=== PATIENT | female | born 1945 | race African-American/Black ===

== ENCOUNTER 2019-12-18 11:06 | Emergency (ER) | payer MEDICARE, SELFPAY ==
--- NOTE | ~2019-12-18 | XR_ITS ---
EXAMINATION: XR chest 1V portable DATE: 12/18/2019 12:48 INDICATION: PICC line removed TECHNIQUE: frontal view of the chest was obtained. COMPARISON: Chest radiograph dated 12/18/2019 at 11:54 AM FINDINGS: The previously noted right internal jugular central venous catheter has been removed. Mild elevation the right hemidiaphragm. Small bilateral pleural effusions. Opacities at the bilateral lung bases mos t prominent at the medial aspect of the left lower lung zone most likely associated compressive atele ctasis although differential includes pneumonia. No pulmonary edema or pneumothorax. The cardiomedias tinal silhouette is normal. IMPRESSION: 1. Small bilateral pleural effusions with mild bibasilar atelectasis versus less likely pneumonia. Reviewed, dictated and finalized at location A. IMPRESSION: 1. Small bilateral pleural effusions with mild bibasilar atelectasis versus les s likely pneumonia.
--- NOTE | ~2019-12-18 | XR_ITS ---
EXAMINATION: XR chest 1V portable DATE: 12/18/2019 11:56 INDICATION: Line displacement TECHNIQUE: frontal view of the chest was obtained. COMPARISON: None FINDINGS: Left internal jugular central venous catheter which courses inferiorly along the left side of the med iastinum with distal tip projecting over the left side of the heart lateral to the margin of the desc ending thoracic aorta. Very small bilateral pleural effusions with blunting at the costophrenic cardiophrenic angles. Opacit y at the medial left lower lung zone most likely compressive atelectasis although differential includ es pneumonia. No other airspace opacities, pulmonary edema or pneumothorax. Cardiomediastinal silhoue tte is within normal limits for AP technique. Surgical clips project over the epigastric region. IMPRESSION: 1. Abnormal course of a left internal jugular central venous catheter which could be either within th e left internal mamillary vein or extending along an aberrant or duplicated left-sided superior vena cava. 2. Very small bilateral pleural effusions with mild bibasilar atelectasis versus less likely pneumoni a.. Reviewed, dictated and finalized at location A. IMPRESSION: 1. Abnormal course of a left internal jugular central venous catheter which cou ld be either within the left internal mamillary vein or extending along an aber rant or duplicated left-sided superior vena cava. 2. Very small bilateral pleural effusions with mild bibasilar atelectasis versu s less likely pneumonia..
[2019-12-18 11:03] VITALS: BP 171/79; PULSE 83; RESP 20; TEMP 36.4; O2SAT 100
[2019-12-18 11:05] VITALS: PULSE 81
--- NOTE | 2019-12-18 11:49 | ED.GENADULT ---
HPI - General Adult General Chief complaint: Unspecified Stated complaint: PICC Line came out Source: patient and EMS Mode of arrival: ambulatory Limitations: no limitations History of Present Illness HPI narrative: Patient is a 74-year-old female who [facility] evaluation of PICC line displacement which was found today patient on arrival to the emergency department is resting comfortably in the room in no distress denying any complaints or pain. Patient is unsure as to why she has the PICC line Related Data Home Medications Medication Instructions Recorded Confirmed TPN Electrolytes 12/18/19 acetaminophen [Mapap 1,000 mg PO Q6H PRN 12/18/19 (acetaminophen)] albuterol sulfate 2.5 mg INHALATION Q4H PRN 12/18/19 alum-mag hydroxide-simeth [Maalox 10 ml PO Q4-5H PRN 12/18/19 Advanced] amlodipine [Norvasc] 10 mg PO DAILY 12/18/19 calcitriol 0.5 mcg PO DAILY 12/18/19 cetirizine [Zyrtec] 5 mg PO DAILY 12/18/19 diphenhydramine HCl [Benadryl] 5 mg PO Q4-5H 12/18/19 ergocalciferol (vitamin D2) 1,250 mcg PO WEEKLY 12/18/19 [Drisdol] esomeprazole magnesium [Nexium] 40 mg PO DAILY 12/18/19 fat emulsion 12/18/19 ferrous sulfate 44 mg PO DAILY 12/18/19 fluticasone propionate 1 spray INTRANASAL PRN PRN 12/18/19 heparin (porcine) 5,000 unit SUBCUT Q8H 12/18/19 heparin lock flush (porcine) 5 unit IV Q8H 12/18/19 lidocaine 1 patch TOPICAL DAILY 12/18/19 thiamine HCl (vitamin B1) 2,500 mg PO DAILY 12/18/19 Allergies Allergy/AdvReac Type Severity Reaction Status Date / Time ceftriaxone Allergy Unknown Verified 12/18/19 11:08 gabapentin Allergy Unknown Verified 12/18/19 11:08 Penicillins Allergy Unknown Verified 12/18/19 11:08 Review of Systems Review of Systems: All systems reviewed & are unremarkable except as noted in HPI and below PMFSH Surgical History Surgical History Status post PICC central line placement Social History Social History Gender identity (if verbalized by the patient): Female Exam Narrative: Exam Narrative: GENERAL: Well-appearing, well-nourished, and in no acute distress. HEAD: Normocephalic, atraumatic. EYES: PERRLA and EOMI. ENT: Nares clear, no rhinorrhea or epistaxis. Mucous membranes moist. CHEST: Clear to auscultation. No respiratory distress. No wheezes rales or rhonchi HEART: Regular rate and rhythm. No murmur heard. Normal peripheral pulses. ABDOMEN: Soft, nontender, nondistended EXTREMITIES: Normal range of motion. No edema. SKIN: Warm, dry, no rash. PICC line dislodged from the left upper chest no erythema drainage or bleeding noted NEURO: No focal deficits. Alert and oriented x3. PSYCH: Normal mood and affect. Course Course Emergency Course: Patient in the room in no distress aware of case findings treatment plan and diagnosis agreeing to being transferred back and will be followed by primary care who will facilitate having the line replaced Consultations Consultation #1: Follow-up with Dr. Cotton who will help facilitate having the line replaced and feels comfortable with the patient returning to the nursing rehab facility Date: 12/18/19 Time: 12:46 Vital Signs Vital signs: Vital Signs Temperature 97.6 F 12/18/19 11:03 Pulse Rate 83 12/18/19 11:03 Respiratory Rate 20 12/18/19 11:03 Blood Pressure 171/79 H 12/18/19 11:03 Pulse Oximetry 100 12/18/19 11:03 Temperature 97.6 F 12/18/19 11:03 Pulse Rate 86 12/18/19 12:38 Respiratory Rate 18 12/18/19 12:38 Blood Pressure 171/79 H 12/18/19 11:03 Pulse Oximetry 100 12/18/19 12:38 Procedures Other Procedure Procedure 1: Other Procedure: Patient's PICC line was dislodged 2 sutures were removed for it was sutured into place Medical Decision Making MDM Narrative Medical decision making narrative: Patient in the room in no distress awar
[2019-12-18 12:22] LABS: Basophils Absolute Auto 0.1 K/mm3 (0.0-0.1); Eosinophils Absolute Auto 0.3 K/mm3 (0-0.3); Eosinophils Percent Auto 3.2 % (0-4.4); Hematocrit 33.4 % (37.0-47.0); Hemoglobin 9.7 g/dL (12.0-15.0); Immature Granulocyte Absolute 0.04 K/mm3 (0.00-0.031); Immature Granulocyte Percent A 0.4 % (0-0.5); Lymphocytes Absolute Auto 2.11 K/mm3 (0.9-3.2); Lymphocytes Percent Auto 20.9 % (18.3-44.2); Mean Corpuscular Hemoglobin 29.7 pg (26-34); Mean Corpuscular Volume 102.1 fl (80-100); Mean Platelet Volume 10.5 fl (7.4-10.4); Monocytes Percent Auto 10.2 % (2.6-8.5); Neutrophils Absolute Auto 6.5 K/mm3 (1.3-6.7); Neutrophils Percent Auto 64.3 % (45.5-73.1); Platelet Count Result 515 k/mm3 (150-375); Red Blood Count 3.27 M/mm3 (4.2-5.4); Red Cell Distribution Width 15.4 % (11.5-14.5); White Blood Count 10.1 K/mm3 (4.5-10.0)
[2019-12-18 12:38] VITALS: PULSE 86; RESP 18; O2SAT 100
[2019-12-18 12:44] LABS: Alanine Aminotransferase 63 U/L (4-35); Albumin Level 3.8 g/dL (3.5-5.1); Aspartate Amino Transferase 133 U/L (14-36); Bilirubin,Total 1.6 mg/dL (0.2-1.3); Blood Urea Nitrogen 52 mg/dL (7-17); Calcium 9.8 mg/dL (8.4-10.2); Carbon Dioxide 16 mmol/L (22-30); Chloride 111 mmol/L (98-107); Estimated CRCL calculation 19 ml/min; Estimated Glomerular Filt Rate 23; Glucose 101 mg/dL (65-105); Potassium 3.8 mmol/L (3.4-5.0); Sodium 141 mmol/L (137-145)
[2019-12-18 13:00] LABS: Alkaline Phosphatase 1200 U/L (38-126)
--- NOTE | 2019-12-18 16:17 | PC.NURSE ---
Patient transferred to [facility] via [facility] at this time.
== END 2019-12-18 16:18 ==
PROVIDERS: Emergency Medicine Emergency Medical Services; Emergency Provider Family Medicine
DX: Z45.2 Encounter for adjustment and management of vascular access device (principal); R91.8 Other nonspecific abnormal finding of lung field
CPT/HCPCS: 36415; 71045; 80053; 85025; 99283

== ENCOUNTER 2020-03-10 20:23 | Emergency (ER) | payer MEDICARE, SELFPAY ==
--- NOTE | ~2020-03-10 | XR_ITS ---
EXAMINATION: XR hip RT 2V w AP pelvis DATE: 03/10/2020 21:08 INDICATION: Right hip pain. TECHNIQUE: An anteroposterior view of the pelvis and 2 views of right hip were obtained. COMPARISON: None. FINDINGS: There is a bipolar right hip hemiarthroplasty in near-anatomic alignment. No periprosthetic lucency to suggest loosening or infection. No fracture. There is mild left hip osteoarthritis. Surgi burt clips overlie the pelvis. There is at least mild lumbar spondylosis. IMPRESSION: 1. Bipolar right hip hemiarthroplasty in near-anatomic alignment. 2. Mild left hip osteoarthritis. Reviewed, dictated and finalized at location A.
[2020-03-10 20:27] VITALS: BP 102/63; PULSE 74; RESP 15; O2SAT 100
--- NOTE | 2020-03-10 20:30 | ED.FALL ---
HPI - Fall General Chief Complaint: Fall Stated Complaint: fall, hip pain History of Present Illness HPI Narrative: Patient is a 74-year-old female who presents ER with left hip pain. Patient reports she is getting up out of bed when her gown got caught on the wheel of a walker of the bed and caused her to fall onto her right side. She injured her right hip. She has been able to bear weight. No numbness or tingling. She did not strike her head or lose consciousness. She was sent by [facility] for further evaluation. Related Data Home Medications Medication Instructions Recorded Confirmed TPN Electrolytes 12/18/19 acetaminophen [Mapap 1,000 mg PO Q6H PRN 12/18/19 (acetaminophen)] albuterol sulfate 2.5 mg INHALATION Q4H PRN 12/18/19 alum-mag hydroxide-simeth [Maalox 10 ml PO Q4-5H PRN 12/18/19 Advanced] amlodipine [Norvasc] 10 mg PO DAILY 12/18/19 calcitriol 0.5 mcg PO DAILY 12/18/19 cetirizine [Zyrtec] 5 mg PO DAILY 12/18/19 diphenhydramine HCl [Benadryl] 5 mg PO Q4-5H 12/18/19 ergocalciferol (vitamin D2) 1,250 mcg PO WEEKLY 12/18/19 [Drisdol] esomeprazole magnesium [Nexium] 40 mg PO DAILY 12/18/19 fat emulsion 12/18/19 ferrous sulfate 44 mg PO DAILY 12/18/19 fluticasone propionate 1 spray INTRANASAL PRN PRN 12/18/19 heparin (porcine) 5,000 unit SUBCUT Q8H 12/18/19 heparin lock flush (porcine) 5 unit IV Q8H 12/18/19 lidocaine 1 patch TOPICAL DAILY 12/18/19 thiamine HCl (vitamin B1) 2,500 mg PO DAILY 12/18/19 Allergies Allergy/AdvReac Type Severity Reaction Status Date / Time ceftriaxone Allergy Unknown Verified 03/10/20 20:41 gabapentin Allergy Unknown Verified 03/10/20 20:41 Penicillins Allergy Unknown Verified 03/10/20 20:41 Review of Systems Review of Systems: No All systems reviewed & are unremarkable except as noted in HPI and below Constitutional: Constitutional: Denies chills, Denies fever(s) and Denies weakness Musculoskeletal: Musculoskeletal: Denies back pain, Reports arthralgias, Denies joint swelling and Denies muscle cramps Neurologic: Denies syncope, Denies focal weakness and Denies numbness PMFSH Past Medical History Medical History (Updated 03/10/20 @ 22:33 by Mike Baker MD) Choledocholithiasis CKD (chronic kidney disease) Diabetes mellitus Gastric ulcer Severe malnutrition Surgical History Surgical History (Updated 03/10/20 @ 20:35 by Mike Baker MD) History of ERCP History of gastrostomy tube placement Status post PICC central line placement Social History Social History Gender identity (if verbalized by the patient): Female Sexual Orientation (if Verbalized by the Patient): Straight or Heterosexual Exam Narrative: Exam Narrative: GENERAL: Well-appearing, thin, and in no acute distress. HEAD: Normocephalic, atraumatic. ENT: Mucous membranes moist. CHEST: Clear to auscultation. No respiratory distress. HEART: Regular rate and rhythm. Normal peripheral pulses. ABDOMEN: Soft, nontender, nondistended, malodorous urine from [place] EXTREMITIES: Normal range of motion of the upper extremities. No shortening of the lower extremities, endorses pain at the right hip but maintains ROM. SKIN: Warm, dry, no rash. NEURO: Alert and oriented x3. Course Course Emergency Course: [place] for pain. X-rays negative. Macrobid for UTI. Patient declined blood draw. Vital Signs Vital signs: Vital Signs Pulse Rate 74 03/10/20 20:27 Respiratory Rate 15 03/10/20 20:27 Blood Pressure 102/63 03/10/20 20:27 Pulse Oximetry 100 03/10/20 20:27 Temperature 98.6 F 03/10/20 20:36 Pulse Rate 77 03/10/20 22:00 Respiratory Rate 19 03/10/20 22:00 Blood Pressure 105/67 03/10/20 22:00 Pulse Oximetry 97 03/10/20 22:00 MDM - Fall Lab Data Labs: Lab Results 03/10/20 Range/Units 20:43 Urine Color Yellow (Yellow) Urine Appearance Turbid H (Verena
[2020-03-10 20:36] VITALS: BP 102/63; PULSE 763; RESP 16; TEMP 37; O2SAT 98
--- NOTE | 2020-03-10 20:56 | PC.NURSE ---
pt to xray via stretcher at this time.
[2020-03-10 20:57] LABS: Add Urine Microscopic? YES; Amorphous Sediment Urine Few; Appearance Urine Turbid (Clear); Bacteria Urine 4+ /hpf; Bilirubin Urine Negative (Negative); Blood Urine Negative (Negative); Color Urine Yellow (Yellow); Glucose Urine UA Negative (Negative); Ketones Urine Negative (Negative); Leukocyte Esterase Ur 3+ LEU/UL (Negative); Mucus Urine Rare /lpf; Nitrate Urine Negative (Negative); Protein Urine 3+ mg/dL (Negative); RBC Urine 21-50 /hpf (0-2); Specific Grav Ur 1.014 (1.001-1.035); Squamous Epithelial Cell Urine Rare /hpf (Few); Urobilinogen Urine Negative mg/dL (<2.0)
--- NOTE | 2020-03-10 21:22 | PC.NURSE ---
Asked lab to come draw pt
--- NOTE | 2020-03-10 21:55 | PC.NURSE ---
Addendum entered by Rocio De La Rosa RN 03/10/20 22:00: dr. payne made aware. Original Note: lab unable to obtain specimen.
[2020-03-10 22:00] VITALS: BP 105/67; PULSE 77; RESP 19; O2SAT 97
[2020-03-10 22:45] VITALS: BP 187/68; PULSE 84; RESP 15; O2SAT 100
[2020-03-10] MEDS: NITROFURANTOIN MONOHYD MACROCR 100 MG CAP PO (22:45)
--- NOTE | 2020-03-10 22:56 | PC.NURSE ---
RN attempted to contact [facility] to given nursing report, unsuccessful x 3 attempt.
[2020-03-10 23:06] VITALS: BP 175/65; PULSE 86; RESP 14; O2SAT 100
--- NOTE | 2020-03-10 23:09 | PC.NURSE ---
RN report given to Alexandr.
--- NOTE | 2020-03-10 23:57 | PC.NURSE ---
Called [facility] at 2300 to transport patient to [facility]. ETA [id number] Lam called at 2320 to update ETA to [id number]
[2020-03-11 00:18] VITALS: BP 154/81; PULSE 87; RESP 19; O2SAT 100
--- NOTE | 2020-03-11 03:26 | PC.NURSE ---
Called [facility] at [phone] to request transport. [facility] declined Called [facility] at [phone] to request transport. [facility] declined.
[2020-03-11 03:32] VITALS: BP 137/81; PULSE 88; RESP 19; O2SAT 100
--- NOTE | 2020-03-11 05:32 | PC.NURSE ---
[facility] called to update ETA to [id number]
== END 2020-03-11 06:00 ==
PROVIDERS: Emergency Provider Emergency Medicine
DX: M25.551 Pain in right hip (principal); N39.0 Urinary tract infection, site not specified; E11.22 Type 2 diabetes mellitus with diabetic chronic kidney disease; N18.9 Chronic kidney disease, unspecified; M16.12 Unilateral primary osteoarthritis, left hip; Z96.641 Presence of right artificial hip joint
CPT/HCPCS: 73502; 81001; 87086; 87088; 99283; A9270

== ENCOUNTER 2020-04-13 18:21 | Emergency (ER) | payer MEDICARE, SELFPAY ==
[2020-04-13] VITALS (25 sets, daily range): BP systolic 111–210; BP diastolic 54–87; PULSE 67–90; RESP 13–23; TEMP 37.3; O2SAT 94–100
--- NOTE | 2020-04-13 18:12 | ED.GENADULT ---
HPI - General Adult General Chief complaint: Wound/Laceration Stated complaint: DRAINAGE FROM G TUBE SITE Source: patient and EMS Mode of arrival: EMS Limitations: no limitations History of Present Illness HPI narrative: Patient is a 74-year-old female with a history of CVA?( EMS reports this, but patient denies), hypertension, status post G-tube placement who presents for evaluation erythema and pain surrounding the G-tube site. There is concern for possible drainage from the site. Patient is denying any fever or chills, she does report some abdominal discomfort and skin irritation. She denies nausea or vomiting. Reportedly, the patient has been cleared following a speech eval/swallow study, and G-tube is supposed to be removed. Related Data Home Medications Medication Instructions Recorded Confirmed TPN Electrolytes 12/18/19 acetaminophen [Mapap 1,000 mg PO Q6H PRN 12/18/19 (acetaminophen)] albuterol sulfate 2.5 mg INHALATION Q4H PRN 12/18/19 alum-mag hydroxide-simeth [Maalox 10 ml PO Q4-5H PRN 12/18/19 Advanced] amlodipine [Norvasc] 10 mg PO DAILY 12/18/19 calcitriol 0.5 mcg PO DAILY 12/18/19 cetirizine [Zyrtec] 5 mg PO DAILY 12/18/19 diphenhydramine HCl [Benadryl] 5 mg PO Q4-5H 12/18/19 ergocalciferol (vitamin D2) 1,250 mcg PO WEEKLY 12/18/19 [Drisdol] esomeprazole magnesium [Nexium] 40 mg PO DAILY 12/18/19 fat emulsion 12/18/19 ferrous sulfate 44 mg PO DAILY 12/18/19 fluticasone propionate 1 spray INTRANASAL PRN PRN 12/18/19 heparin (porcine) 5,000 unit SUBCUT Q8H 12/18/19 heparin lock flush (porcine) 5 unit IV Q8H 12/18/19 lidocaine 1 patch TOPICAL DAILY 12/18/19 thiamine HCl (vitamin B1) 2,500 mg PO DAILY 12/18/19 bisacodyl 10 mg GA DAILY PRN 04/13/20 epoetin bill-epbx [Retacrit] 10,000 unit SUBCUT 3XW 04/13/20 esomeprazole magnesium [Nexium] 40 mg PO DAILY 04/13/20 furosemide [Lasix] 20 mg PO DAILY 04/13/20 heparin (porcine) 5,000 unit SUBCUT ONCE 04/13/20 04/13/20 linaclotide [Linzess] 145 mcg PO DAILY 04/13/20 loperamide [Anti-Diarrheal 04/13/20 (loperamide)] melatonin mg 04/13/20 [id number] acid-lutein [Adult tablet PO 04/13/20 Multivitamin (w-lutein)] olopatadine 04/13/20 ondansetron HCl [Zofran] 4 mg PO Q6H PRN 04/13/20 polyethylene glycol 3350 [Miralax] 17 g PO BID 04/13/20 prochlorperazine maleate 10 mg PO Q6H PRN 04/13/20 quetiapine 50 mg PO HS 04/13/20 ramelteon mg PO 04/13/20 sodium bicarbonate 650 mg PO QID PRN 04/13/20 sucralfate g 04/13/20 trazodone 50 mg PO HS PRN 04/13/20 Allergies Allergy/AdvReac Type Severity Reaction Status Date / Time ceftriaxone Allergy Unknown Verified 04/13/20 19:12 gabapentin Allergy Unknown Verified 04/13/20 19:12 Penicillins Allergy Unknown Verified 04/13/20 19:12 Review of Systems Review of Systems: Narrative: CONSTITUTIONAL: Denies fever CARDIOVASCULAR: Denies chest pain RESPIRATORY: Denies cough or dyspnea. GASTROINTESTINAL: Denies abdominal pain SKIN: Reports redness, irritation surrounding G-tube site MUSCULOSKELETAL: Denies back pain NEUROLOGIC: Denies headache PMF Past Medical History Medical History Choledocholithiasis CKD (chronic kidney disease) Diabetes mellitus Gastric ulcer Severe malnutrition Surgical History Surgical History History of ERCP History of gastrostomy tube placement Status post PICC central line placement Social History Social History Gender identity (if verbalized by the patient): Female Sexual Orientation (if Verbalized by the Patient): Straight or Heterosexual Exam Narrative: Exam Narrative: GENERAL: Awake, alert, conversant HEAD: Normocephalic, atraumatic. EYES: PERRLA and EOMI. ENT: Nares clear, no rhinorrhea or epistaxis. Mucous membranes moist. NECK: Supple. CHEST: No respiratory distress,
--- NOTE | 2020-04-13 19:27 | PC.NURSE ---
pt refusing iv, dr lopez notified. pt requesting to leave .RN advised of risks of leaving [facility]a.
--- NOTE | 2020-04-13 21:01 | PC.NURSE ---
called [facility] to transport patient. ETA [id number]
--- NOTE | 2020-04-13 21:51 | PC.NURSE ---
RN report given Rocio @ [facility]
== END 2020-04-13 22:07 | disposition left against medical advice (07) ==
PROVIDERS: Emergency Provider Emergency Medicine
DX: L53.9 Erythematous condition, unspecified (principal); Z93.1 Gastrostomy status; E11.22 Type 2 diabetes mellitus with diabetic chronic kidney disease; N18.9 Chronic kidney disease, unspecified; Z79.4 Long term (current) use of insulin
CPT/HCPCS: 99283; A9270

== ENCOUNTER 2020-05-06 10:30 | Inpatient (IN) | payer MEDICARE, MEDICAID, SELFPAY ==
[2020-05-06] VITALS (13 sets, daily range): BP systolic 137–174; BP diastolic 44–80; PULSE 75–96; RESP 12–20; TEMP 36.1–37.2; O2SAT 97–100; BMI 19.3
--- NOTE | ~2020-05-06 | XR_ITS ---
XR G tube evaluation w imaging 05/07/2020 08:22 Indication: G-tube replacement Procedure: AP supine view of the abdomen Comparison: 05/06/2020 Findings: Gastric tube tip in the stomach. There is contrast in the gastric lumen. No evidence for ex travasation of contrast. Nonobstructive bowel gas pattern. Moderate colonic fecal loading. Impression: 1: Gastric tube in expected position. Reviewed, dictated and finalized at location A. Impression: 1: Gastric tube in expected position.
--- NOTE | ~2020-05-06 | XR_ITS ---
. EXAMINATION: XR G tube replacement w image DATE: 05/06/2020 13:37 INDICATION: Bleeding at gastrostomy tube site TECHNIQUE: Frontal view of the abdomen was obtained following injection of 30 mL Omnipaque 350 into t he patient's percutaneous gastrostomy tube. An additional view was obtained 15 minutes following inje ction of an additional 30 mL of contrast. COMPARISON: CT dated 05/06/2020 FINDINGS: Injected contrast surrounds the percutaneous gastrostomy tube within the distal portion of the stomac h. A suture line is seen at the proximal margin of the stomach. No evident extraluminal extravasation . Additional surgical clip and suture line in the epigastric region at the site of the gastrojejunal anastomosis. Metallic clips are seen along the midline of the anterior abdominal and pelvic wall. No dilated gas-filled loops of bowel to suggest obstruction. IMPRESSION: 1. Percutaneous gastrostomy tube and injected contrast within the distal gastric remnant with change of gastric bypass procedure. KUB Reviewed, dictated and finalized at location A. IMPRESSION: 1. Percutaneous gastrostomy tube and injected contrast within the distal gastri c remnant with change of gastric bypass procedure. KUB
--- NOTE | ~2020-05-06 | US_ITS ---
EXAMINATION: US retroperitoneal limited DATE: 05/11/2020 12:32 INDICATION: Renal failure. Elevated creatinine. TECHNIQUE: Multiple ultrasound grayscale images of the kidneys were obtained for anticipated renal bi opsy. Planned biopsy was deferred due to elevated blood pressures with systolic pressures varying bet ween 172-188. COMPARISON: None. FINDINGS: Bilateral kidneys are visualized with increased echogenicity consistent with medical renal disease. T here is no hydronephrosis in either kidney. IMPRESSION: 1. Planned renal biopsy was canceled due to uncontrolled hypertension. Recommend optimizing blood pr essure management. Blood pressure should be consistently less than 165 systolic and 100 diastolic moriah or to biopsy. 2. Bilateral echogenic kidneys consistent with medical renal disease. Reviewed, dictated and finalized at location A. IMPRESSION: 1. Planned renal biopsy was canceled due to uncontrolled hypertension. Recomme nd optimizing blood pressure management. Blood pressure should be consistently less than 165 systolic and 100 diastolic prior to biopsy. 2. Bilateral echogenic kidneys consistent with medical renal disease.
--- NOTE | ~2020-05-06 | US_ITS ---
EXAMINATION: US renal BI DATE: 05/07/2020 14:34 INDICATION: Acute on chronic renal failure. TECHNIQUE: Multiple ultrasound grayscale images of the kidneys were obtained. COMPARISON: CT abdomen and pelvis 05/06/2020 FINDINGS: The right kidney measures 10.0 x 4.6 x 6.1 cm. The left kidney measures 9.0 x 4.6 x 6.7 cm. The kidne ys demonstrate increased parenchymal echogenicity, consistent with medical renal disease. There is no hydronephrosis. The bladder is decompressed by a Deng catheter. IMPRESSION: 1. Normal kidney sizes No hydronephrosis. 2. Hyperechoic kidneys, consistent with medical renal disease. Reviewed, dictated and finalized at location A.
--- NOTE | ~2020-05-06 | CT_ITS ---
EXAMINATION: CT abdomen pelvis wo con DATE: 05/06/2020 12:30 INDICATION: Abdominal pain. G-tube bleeding. TECHNIQUE: Computed tomography (CT) of the abdomen and pelvis was performed without intravenous contr ast. Automated exposure control and iterative reconstruction technique were employed. The dose-length product was 439.84 mGy-cm. COMPARISON: None FINDINGS: Respiratory motion and mild dependent atelectasis at the bilateral lung bases. Cardiomegaly. Atherosc lerotic coronary artery calcification. No pericardial or pleural effusion. Common bile duct is dilate d likely related to prior cholecystectomy with sutures but no evident gallbladder at the gallbladder fossa. Liver, spleen, pancreas and right adrenal gland are normal. 2 cm left adrenal mass. Postoperat luz maria changes consistent with gastric bypass procedure. There is a percutaneous gastrostomy tube bulb a nd in the distal gastric remnant. Moderate amount of stool scattered throughout the colon. Normal petrona endix. No bowel obstruction. Distended bladder is normal. The uterus is not identified and has likely been surgically resected. Pelvic floor relaxation with 5.8 cm ball of stool at the rectum centered b elow the level of the pubococcygeal line. No free intraperitoneal gas or fluid. No pathologically enl arged abdominal or pelvic lymphadenopathy. There is extensive calcified atherosclerosis of the aorta and many of the other arteries. Large intramuscular lipoma within the right abductor tulio muscle wh ich measures up to 6.5 x 3.5 cm transaxial dimensions and >7.4 cm craniocaudally extending beyond the inferior margin of the [id number]-ul-dscr. Bipolar type right hip hemiarthroplasty. Mild lumbar dextrosco liosis with moderate spondylosis. There are lytic bone lesions involving the inferior endplate of T9, superior endplate of S1 and both the superior and inferior endplates of L2 with well-defined but non sclerotic margins. IMPRESSION: 1. Postoperative change of prior gastric bypass procedure with percutaneous gastrostomy tube bulb wit hin the distal gastric remnant. 2. Large amount of colonic stool including 5.8 cm ball of stool at the rectum located below the puboc occygeal line consistent with pelvic floor relaxation. Correlate clinically for constipation. 3. A few lytic bone lesions involving the endplates in the lumbar and lower thoracic spine which coul d represent Schmorl's nodes however are somewhat atypical appearance and could not exclude lytic meta static disease particularly if patient has any prior history of malignancy. Would consider pre and po stcontrast MRI for further evaluation. Reviewed, dictated and finalized at location A. IMPRESSION: 1. Postoperative change of prior gastric bypass procedure with percutaneous gas trostomy tube bulb within the distal gastric remnant. 2. Large amount of colonic stool including 5.8 cm ball of stool at the rectum l ocated below the pubococcygeal line consistent with pelvic floor relaxation. Co rrelate clinically for constipation. 3. A few lytic bone lesions involving the endplates in the lumbar and lower tho racic spine which could represent Schmorl's nodes however are somewhat atypical appearance and could not exclude lytic metastatic disease particularly if pedro ent has any prior history of malignancy. Would consider pre and postcontrast MR I for further evaluation.
--- NOTE | 2020-05-06 11:04 | ED.ABDPAIN ---
HPI - Abdominal Pain General Chief Complaint: Abdominal Pain <KEESHA Barry Last Filed: 05/06/20 15:32> Stated Complaint: Gtube bleeding <KEESHA Barry Last Filed: 05/06/20 15:32> Time Seen by Provider: 05/06/20 10:46 <KEESHA Barry Last Filed: 05/06/20 15:32> Source: patient, EMS, RN notes reviewed and other <KEESHA Barry Last Filed: 05/06/20 15:32> Mode of arrival: EMS <KEESHA Barry Last Filed: 05/06/20 15:32> Limitations: no limitations <KEESHA Barry Last Filed: 05/06/20 15:32> History of Present Illness HPI narrative: Patient is a 74-year-old female who presents to emergency department for evaluation of possible leakage around her G-tube patient has G-tube in place patient notes that she is here for constipation on arrival denies any pain or other complaints patient is incontinent of stool and urine on arrival patient [facility]. Patient had similar occurrence April 13 patient has history of noncompliance and refuses to allow evaluation and IVs historically. <KEESHA Barry Last Filed: 05/06/20 15:32> Related Data Home Medications: Home Medications Medication Instructions Recorded Confirmed TPN Electrolytes 12/18/19 acetaminophen [Mapap 1,000 mg PO Q6H PRN 12/18/19 (acetaminophen)] albuterol sulfate 2.5 mg INHALATION Q4H PRN 12/18/19 alum-mag hydroxide-simeth [Maalox 10 ml PO Q4-5H PRN 12/18/19 Advanced] amlodipine [Norvasc] 10 mg PO DAILY 12/18/19 calcitriol 0.5 mcg PO DAILY 12/18/19 cetirizine [Zyrtec] 5 mg PO DAILY 12/18/19 diphenhydramine HCl [Benadryl] 5 mg PO Q4-5H 12/18/19 ergocalciferol (vitamin D2) 1,250 mcg PO WEEKLY 12/18/19 [Drisdol] esomeprazole magnesium [Nexium] 40 mg PO DAILY 12/18/19 fat emulsion 12/18/19 ferrous sulfate 44 mg PO DAILY 12/18/19 fluticasone propionate 1 spray INTRANASAL PRN PRN 12/18/19 heparin (porcine) 5,000 unit SUBCUT Q8H 12/18/19 heparin lock flush (porcine) 5 unit IV Q8H 12/18/19 lidocaine 1 patch TOPICAL DAILY 12/18/19 thiamine HCl (vitamin B1) 2,500 mg PO DAILY 12/18/19 bisacodyl 10 mg SD DAILY PRN 04/13/20 epoetin bill-epbx [Retacrit] 10,000 unit SUBCUT 3XW 04/13/20 esomeprazole magnesium [Nexium] 40 mg PO DAILY 04/13/20 furosemide [Lasix] 20 mg PO DAILY 04/13/20 heparin (porcine) 5,000 unit SUBCUT ONCE 04/13/20 04/13/20 linaclotide [Linzess] 145 mcg PO DAILY 04/13/20 loperamide [Anti-Diarrheal 04/13/20 (loperamide)] melatonin mg 04/13/20 [id number] acid-lutein [Adult tablet PO 04/13/20 Multivitamin (w-lutein)] olopatadine 04/13/20 ondansetron HCl [Zofran] 4 mg PO Q6H PRN 04/13/20 polyethylene glycol 3350 [Miralax] 17 g PO BID 04/13/20 prochlorperazine maleate 10 mg PO Q6H PRN 04/13/20 quetiapine 50 mg PO HS 04/13/20 ramelteon mg PO 04/13/20 sodium bicarbonate 650 mg PO QID PRN 04/13/20 sucralfate g 04/13/20 trazodone 50 mg PO HS PRN 04/13/20 <Ran Springer PA-C - Last Filed: 05/06/20 15:32> Allergies/Adverse Reactions: Allergies Allergy/AdvReac Type Severity Reaction Status Date / Time ceftriaxone Allergy Unknown Verified 05/06/20 10:33 gabapentin Allergy Unknown Verified 05/06/20 10:33 Penicillins Allergy Unknown Verified 05/06/20 10:33 <Ran Springer PA-C - Last Filed: 05/06/20 15:32> PMFSH Social History Social History: Social History Gender identity (if verbalized by the patient): Female <Ran Springer PA-C - Last Filed: 05/06/20 15:32> Course Course Emergency Course: Patient in the room cooperating will be placed in hospital for multiple different reasons patient has been pleasant and agreeing to her care resting comfortably in the room at this time in no distress <Ran Springer PA-C - Last Filed: 05/06/20 15:32> ENGRAVING PATTERNMAKER/PA Physician Supervision Patient presented for mona
--- NOTE | 2020-05-06 11:05 | PC.NURSE ---
Bedside report from off-going RN. Introduced to patient. Informed that patient is difficult IV/Blood draw stick and has had multiple attempts from EMS and in ED. Ultrasound to be used. Patient updated and aware.
--- NOTE | 2020-05-06 11:45 | PC.NURSE ---
Ultrasound used for IV placement due to reported multiple previous IV attempts.
[2020-05-06 11:51] LABS: Basophils Absolute Auto 0.1 K/mm3 (0.0-0.1); Basophils Percent Auto 0.7 % (0.2-1.2); Eosinophils Absolute Auto 0.3 K/mm3 (0-0.3); Eosinophils Percent Auto 2.6 % (0-4.4); Hematocrit 24.7 % (37.0-47.0); Hemoglobin 7.6 g/dL (12.0-15.0); Immature Granulocyte Absolute 0.24 K/mm3 (0.00-0.031); Lymphocytes Absolute Auto 2.12 K/mm3 (0.9-3.2); Mean Corpuscular HGB Conc 30.8 g/dl (32-36); Mean Corpuscular Hemoglobin 28.7 pg (26-34); Mean Corpuscular Volume 93.2 fl (80-100); Mean Platelet Volume 9.9 fl (7.4-10.4); Monocytes Absolute Auto 1.4 K/mm3 (0.1-0.6); Neutrophils Absolute Auto 7.6 K/mm3 (1.3-6.7); Neutrophils Percent Auto 64.7 % (45.5-73.1); Platelet Count Result 530 k/mm3 (150-375); Red Blood Count 2.65 M/mm3 (4.2-5.4); Red Cell Distribution Width 13.8 % (11.5-14.5); White Blood Count 11.8 K/mm3 (4.5-10.0)
[2020-05-06] MEDS: SODIUM CHLORIDE 0.9% IV 500 ML 999 ML IV CONT (11:52)
--- NOTE | 2020-05-06 12:08 | PC.NURSE ---
pt refused straight cath when i went in and had told me that she needed to use the bathroom and that she was going in my diaper and that it is easy to slide on and off.
[2020-05-06 12:29] LABS: Alanine Aminotransferase 12 U/L (4-35); Alkaline Phosphatase 181 U/L (38-126); Anion Gap 7 mmol/L (8-16); Aspartate Amino Transferase 36 U/L (14-36); Bilirubin,Total 0.4 mg/dL (0.2-1.3); Blood Urea Nitrogen 98 mg/dL (7-17); Calcium 8.6 mg/dL (8.4-10.2); Carbon Dioxide 18 mmol/L (22-30); Chloride 113 mmol/L (98-107); Estimated CRCL calculation 8 ml/min; Estimated Glomerular Filt Rate 8; Glucose 81 mg/dL (65-105); Lipase 64 U/L (23-300); Sodium 138 mmol/L (137-145)
--- NOTE | 2020-05-06 12:35 | PC.NURSE ---
Patient is refusing to allow straight cath at this time. This is second refusal. EDP is aware.
--- NOTE | 2020-05-06 12:35 | ECG_ITS ---
Measurements Intervals [place] Rate: 87 P: 52 WV: 158 QRS: 8 QRSD: 78 T: 8 QT: 329 QTc: 398 Interpretive Statements SINUS RHYTHM VOLTAGE CRITERIA FOR LVH MINIMAL Q WAVES- HIGH LATERAL LEADS BASELINE ARTIFACT- V1 BORDERLINE ECG Electronically Signed On 05-06-2020 15:51:19 CDT by Harjinder Sabillon D.O.
--- NOTE | 2020-05-06 12:55 | PC.NURSE ---
Patient is in radiology at this time.
--- NOTE | 2020-05-06 12:59 | PC.NURSE ---
G-tube noted to left upper abdomen. Area surrounding tube is reddend, appears raw and abraded due to drainage noted coming from stoma around G-tube. Drainage has foul, stool like smell, and is watery and dark. There is dark, coffee ground colored fluid noted in the g-tube as well. Area was cleaned and clean and dry gauze dressing was placed. ED PA in room at this time and aware.
--- NOTE | 2020-05-06 13:25 | PC.NURSE ---
Patient stooled in diaper. Patient cleaned, clean diaper and linen provided. Dressing on abdomen noted to be soaked with watery fecal drainage as well as bright red blood noted from stoma site. Dressing changed at this time.
[2020-05-06] MEDS: DEXTROSE 50% 25 GM/50 ML SYRINGE IV PUSH (13:52)
[2020-05-06] MEDS: CALCIUM GLUC 1,000 MG/NS 50 ML 1,000 MG/50 ML BAG 100 MG IVPB (13:52)
[2020-05-06] MEDS: INSULIN HUMAN REGULAR (*BKC) 100 UNITS/ML 10 UNITS IV PUSH (13:52)
[2020-05-06 14:14] LABS: Lactic Acid Reflex 0.7 mmol/L (0.7-2.1)
[2020-05-06] MEDS: TOLNAFTATE 1% POWDER 45 GM BTL 1 APPLIC TOPICAL ×2 (14:14→23:05)
--- NOTE | 2020-05-06 14:22 | PC.NURSE ---
Gauze noted to be soaked with watery fecal type drainage, no bright red blood noted at this time. Wound cleaned and dried, antifungal powder applied as ordered and wound dressed with dry gauze.
[2020-05-06 14:26] LABS: Add Urine Microscopic? YES; Appearance Urine Cloudy (Clear); Bacteria Urine 1+ /hpf; Bilirubin Urine Negative (Negative); Blood Urine 1+ (Negative); Color Urine Yellow (Yellow); Glucose Urine UA Negative (Negative); Ketones Urine Negative (Negative); Leukocyte Esterase Ur 3+ LEU/UL (Negative); Mucus Urine Rare /lpf; Nitrate Urine Negative (Negative); Protein Urine 2+ mg/dL (Negative); Specific Grav Ur 1.011 (1.001-1.035); Squamous Epithelial Cell Urine Rare /hpf (Few); Urobilinogen Urine Negative mg/dL (<2.0); WBC Clumps Urine Present /HPF; WBC Urine >75 /hpf
--- NOTE | 2020-05-06 15:30 | PC.NURSE ---
Patient refused to allow this nurse to draw her blood. She also refused to allow automotive repair technician to draw blood. Phlebotomy called and requested to come down and collect.
--- NOTE | 2020-05-06 16:42 | PC.NURSE ---
drainage soaked gauze dressing removed, area cleaned and dried, antifungal powder applied as ordered and site dressed with dry gauze
--- NOTE | 2020-05-06 17:00 | PC.NURSE ---
ED Charge reports that she has spoken to phlebotomy and that someone will be down to attempt to collect her blood.
--- NOTE | 2020-05-06 17:22 | PC.NURSE ---
Wind Turbine Electrical Engineer reports that patient refuses to allow her to collect blood.
--- NOTE | 2020-05-06 17:26 | PC.NURSE ---
Patient refusing enema at this time.
[2020-05-06] MEDS: LACTATED RINGERS 1,000 ML 125 ML IV CONT (18:39)
--- NOTE | 2020-05-06 18:46 | ADMGEN ---
This patient, Sangeetha Cox, was admitted to IMU Room 200-01 at 1810 on 05/06/2020. Patient/family oriented to hospital policies and general routines including ID bracelet, bed and alarms, visiting hours, pain management, procedures, bathroom and other care routines, personal items, smoking policy, room service/diet, and visiting hours. Valuables list has been completed. Information on how to activate the Rapid Response Team has been discussed. Patient/Family are encouraged to report perceived risks to care and to ask questions if they do not understand what they are told or what they should do.
[2020-05-06] MEDS: DEXTROSE 50% 25 GM/50 ML SYRINGE (20:35)
[2020-05-06 20:53] LABS: Glucose Point of Care 105 (65-105)
[2020-05-06 20:53] LABS: Glucose Point of Care 59 (65-105)
--- NOTE | 2020-05-06 23:02 | PM.IMHP ---
H&P: HPI History of Present Illness Date/Time: 05/06/20 23:02 Chief complaint: Acute kidney injury/hyperkalemia/constipation/g tu Narrative: Sangeetha Cox is a 74 year old female Who is from [facility]. the patient had been in the emergency room on 04/13/2020 due to drainage from her G-tube site. The patient did not have any fever chills at that time or any abdominal discomfort. Is reported that the patient was cleared following of speech evaluation and she is eating and G-tube supposed to be removed. Today the patient came back to the emergency room for evaluation of possible drainage around the G-tube again. She is also here with constipation patient has been refusing IV sticks Or lab draws. Eventually the patient did allow for IV stick as well as labs to be drawn. Her primary care doctor was notified about the G-tube issues. GI was also called to evaluate possible removal of or replacement the G-tube. Nephrology was also called for acute on chronic renal failure. Patient's H&H is 7.6 and 24.7. She has been on subcu heparin there was some concern that there could be a GI bleed. Potassium was found to be 6.0. Her BUN 98 creatinine is 6.3. White count was elevated to 11.8. EKG shows some peaked T-waves. Patient was noted to have a UTI and started on Levaquin with pharmacy renally dosing. CT imaging shows large amount colonic stool including 5.8 cm ball of stool at the rectum located below the pupil coccygeal line. Few lytic bone lesions involving the endplates in the lumbar lower thoracic spine which could represent Schmorls nodes cannot exclude lytic lesions will need to follow with the MRI with and without contrast. However were unable to do an MRI at this time due to her renal failure. Patient's last known creatinine was November of this year and was 2.5. GFR was 19 at the time. IV fluids were started. The patient was given IV insulin, D50, calcium gluconate, IV Pepcid, and started on Levaquin. Date of service 05/06/2020 Review of Systems Review of Systems: Narrative: the patient keeps complaining cold feet. All systems reviewed & are unremarkable except as noted in HPI and below Constitutional: Constitutional: Reports as per HPI and Reports no additional constitutional complaints Eyes: Eyes: Reports as per HPI and Reports no additional eye complaints ENT: Reports system reviewed and no additional complaints, except as documented and Reports Normal hearing present Cardiovascular: Cardiovascular: Reports no additional cardiovascular complaints Respiratory: Respiratory: Reports no additional respiratory complaints and Reports no additional respiratory complaints Gastrointestinal: Gastrointestinal: Reports as per HPI and Reports no additional gastrointestinal complaints Musculoskeletal: Musculoskeletal: Reports no additional musculoskeletal complaints Integumentary/Breasts: Skin/Breast: Reports system reviewed and no additional complaints, except as docu and Reports as per HPI Neurologic: Reports system reviewed and no additional complaints, except as documented, Reports as per HPI and Reports Normal hearing present Psychiatric: Psychiatric: Reports no additional psychiatric complaints and Reports as per HPI Endocrine: Endocrine: Reports no additional endocrine complaints Hematologic/Lymphatic: Hematologic/Lymphatic: Reports no additional hematologic/lymphatic complaints Allergic/Immunologic: Allergic/Immunologic: Reports no additional allergic/immunologic complaints [facility] Past Medical History Medical History (Updated 05/06/20 @ 23:20 by Chiquita Tilley NP) Choledocholithiasis Chronic anemia Chronic kidney disease, stage 4 (severe) CKD (chronic kidney disease) Dementia Diabetes mellitus Gastric ulcer Hyperlipidemia Hyperparathyroidism Hypertension Insomnia Severe malnutrition Surgical History Surgical History (Updated 05/06/20 @ 23:16 by Chiquita Tilley NP) H/O: hysterectomy History o
[2020-05-06] MEDS: PANTOPRAZOLE SODIUM IV 40 MG VIAL IV PUSH (23:04)
[2020-05-07] VITALS (12 sets, daily range): BP systolic 155–183; BP diastolic 50–95; PULSE 69–93; RESP 12–18; TEMP 35.9–36.5; O2SAT 93–100
--- NOTE | 2020-05-07 00:30 | PC.NURSE ---
Pt refused enema. Explained purpose, but pt states she had one yesterday and had a bowel movement. I told her that the imaging from the er still showed a stool ball present. Pt still refuses. Pt is also refusing all lab sticks. I explained to her at the beginning of this shift that her potassium is high and that if it's still high that it can cause a dysrhythmia or . Pt still refused.
[2020-05-07] MEDS: LACTATED RINGERS 1,000 ML 125 ML IV CONT (04:33)
[2020-05-07] MEDS: TOLNAFTATE 1% POWDER 45 GM BTL 1 APPLIC TOPICAL ×3 (04:47→20:53)
[2020-05-07 07:49] LABS: Hematocrit 22.6 % (37.0-47.0)
--- NOTE | 2020-05-07 08:10 | WPDGICN ---
Assessment and Plan Assessment and plan (1) Gastrostomy complication, unspecified: Code(s): K94.20 - Gastrostomy complication, unspecified Status: Acute Assessment and Plan: There is significant drainage at the gastric cutaneous fistula O were the G-tube is in place. For this reason the G-tube will be replaced. Documentation of position with Gastrografin study is advise further recommendations subsequently. Split gauze dressing to the G-tube site with frequent cleansing the G-tube is advised. (2) Anemia: Code(s): D64.9 - Anemia, unspecified Status: Acute Assessment and Plan: Patient found to have normochromic normocytic anemia. The etiology which is somewhat unclear. Could easily be related to her previous gastric bypass surgery. Or perhaps irritation from the troubles that the G-tube is presenting at the present time. (3) Acute dehydration: Code(s): E86.0 - Dehydration Status: Acute GI Consult Note Consult date/time: 05/07/20 08:10 HPI: Sangeetha Cox is a 74 year old female Seen in evaluation at the request of the emergency room. Patient is currently a resident resident [facility]. She has a gastrostomy tube in place apparently has had significant leakage she was admitted to the hospital for further evaluation she also was found to have anemia and dehydration. Patient states the G-tube was placed many years ago at [facility]. It has not been changed recently. She states that she has never use this tube. Nursing staff reports that she has some difficulty with pills most pills are given in liquid form. This may be 1 of the reasons she has had this G-tube. Gastrografin study through the G-tube in the emergency room reveals that she has also had previous gastric bypass surgery. Old records reflect a past medical history of dementia. Apparently she has a history of gallstones status post cholecystectomy. Apparently she required an ERCP in the past somewhere else. Review of Systems Review of Systems: All systems reviewed & are unremarkable except as noted in HPI and below PMFSH Past Medical History Medical History Choledocholithiasis Chronic anemia Chronic kidney disease, stage 4 (severe) CKD (chronic kidney disease) Dementia Diabetes mellitus Gastric ulcer Hyperlipidemia Hyperparathyroidism Hypertension Insomnia Severe malnutrition Surgical History Surgical History H/O: hysterectomy History of ERCP History of gastric bypass History of gastrostomy tube placement History of right hip replacement Hx of cholecystectomy Status post PICC central line placement Family History Family History (Updated 05/06/20 @ 23:17 by Chiquita Tilley NP) Mother Diabetes mellitus Father Natural Social History Social History Social History: The patient stated that she has 7 children and that only one is surviving. patient tells me she does not drink use marijuana or illicit drugs. She tells me that she has never been . She is a full code. She says that a Ms. 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 She resides at [facility] and she is a poor historian. She tells me that she retired from an [employer]. Smoking status: Never smoker Alcohol intake: never Substance use: never Gender identity (if verbalized by the patient): Female Spiritual care concerns: No Meds Home Medications and Allergies Home Medications Medication Instructions Recorded Confirmed Type acetaminophen [Mapap 1,000 mg PO Q6H PRN 12/18/19 05/06/20 History (acetaminophen)] albuterol sulfate 2.5 mg INHALATION Q4H PRN 12/18/19 05/06/20 History alum-mag hydroxide-simeth [Maalox 10 ml PO Q4-5H PRN 12/18/19 05/06/20 History Advanced] amlodipine [Norvasc] 10 mg PO DA
[2020-05-07 08:11] LABS: Parathyroid Intact 236.7 pg/mL (7.5-53.5)
--- NOTE | 2020-05-07 08:14 | PM.OP ---
Procedure Note - Brief Procedure Note - Brief Date of procedure: 05/07/20 Pre-op diagnosis: Acute kidney injury/hyperkalemia/constipation/g tu Surgeon: Ryland Forrester MD Procedure is G-tube replacement. Preop diagnosis malfunctioning G-tube. Postop diagnosis replaced with 20 Macedonian replacement G-tube. Patient agrees to this procedure. The skin is prepped with viscous lidocaine. The old G-tube is removed initially by deflating the internal bumper period is noted that the bumper per likely had been pump ruptured. Old G-tube was removed. Replaced with a new 20 Macedonian replacement G-tube period is inflated with 6cc internal balloon. Plan is to use the new G-tube for medications as needed. It will be back up for nutrition. Split gauze dressing is advised at the skin site frequent cleansing imaging tube site advised.
[2020-05-07 08:15] LABS: Anion Gap 9 mmol/L (8-16); Blood Urea Nitrogen 87 mg/dL (7-17); Calcium 8.6 mg/dL (8.4-10.2); Carbon Dioxide 17 mmol/L (22-30); Chloride 113 mmol/L (98-107); Estimated CRCL calculation 8 ml/min; Estimated Glomerular Filt Rate 8; Glucose 65 mg/dL (65-105); Potassium 5.6 mmol/L (3.4-5.0); Sodium 139 mmol/L (137-145)
[2020-05-07 08:48] LABS: Hematocrit 23.5 % (37.0-47.0); Hemoglobin 7.3 g/dL (12.0-15.0)
[2020-05-07 10:16] LABS: Glucose Point of Care 118 (65-105)
--- NOTE | 2020-05-07 15:53 | PM.CNNEP ---
Assessment and Plan Assessment and plan (1) PING (acute kidney injury): Code(s): N17.9 - Acute kidney failure, unspecified Status: Acute Assessment and Plan: etiology?? no improvement with IVFs renal ultrasound noted possible myeloma -- lytic bone lesions would be explained by this - check SPE, UPE, kappa/lamda ratio and consider bone scan continue to make/have good urine output follow trend of repeat labs and UOP (2) Chronic kidney disease, stage IV (severe): Code(s): N18.4 - Chronic kidney disease, stage 4 (severe) Status: Chronic Assessment and Plan: baseline creatinine ~ 2.4 - 2.5mg/dl presumable due to HTN and age-related change (3) Acute hyperkalemia: Code(s): E87.5 - Hyperkalemia Status: Chronic Assessment and Plan: due to PING follow trend of repeat values (4) Anemia: Code(s): D64.9 - Anemia, unspecified Status: Acute Assessment and Plan: apparently a chronic issue CKD probably playing a role PING may reason for worsening check iron studies continue outpatient Epogen therapy follow trend of H/H (5) Gastrostomy complication, unspecified: Code(s): K94.20 - Gastrostomy complication, unspecified Status: Acute Assessment and Plan: Gastroentrology following G-tube already exchanged this AM (6) Hypertension: Code(s): I10 - Essential (primary) hypertension Status: Chronic Assessment and Plan: somewhat erratic at this time folow trend for now likely to need further medication adjustment Will continue to follow. History of Present Illness Reason for Consult Consult date: 05/07/20 Reason for consult: acute renal failure (on chronic kidney disease) Chief Complaint Chief complaint: Acute kidney injury/hyperkalemia/constipation/g tu History of Present Illness Narrative: The patient is a 74-year-old female with a past medical history as outlined below who presented to [facility] Emergency room for evaluation of drainage around her G-tube site. Records would indicate that she no longer needs the G-tube as she is eating adequately by mouth but for whatever reason her G - tube still remains in place. other complaints that led to her presentation to the emergency room include constipation. As far as I can tell, she had no other acute issues or complaints voiced that led to her transfer to the emergency room from her nursing facility. Workup and evaluation the emergency room did confirm the presence of leakage around her G-tube site. She was otherwise hemodynamically stable (if not hypertensive) but routine blood tests were done with that demonstrated a marked decline in her kidney function from baseline. Furthermore, she was noted to have hyperkalemia on these blood tests as well. Her hemoglobin hematocrit were also significant lower than baseline. CT scan images of her abdomen were significant for a large amount of colonic stool including a ball of stool located at the rectum as well as a few lytic bone lesions in the thoracic spine. Given these laboratory and imaging study findings, she was admitted the hospital for further evaluation and therapy. It should be noted that she did receive medical therapy for her hyperkalemia in the emergency room. Renal consultation was requested due to her acute kidney injury on chronic kidney disease. As far as I can tell, the patient has a baseline creatinine around 2.5 mg/dL which would put her at stage 4 chronic kidney disease. I am unclear if she follows with a highway truck driver for this issue but she is on medications that would suggest so (Epogen, calcitriol...etc) what she did not tell me if she was. The assumption was that perhaps dehydration was the reason behind her acute kidney injury (but she states she drinks plenty of water) although her low H&H was also some concern for possible GI bleed issue. However, desp
--- NOTE | 2020-05-07 16:01 | PM.IMPN ---
Progress Note: A&P Assessment and Plan (1) UTI (urinary tract infection): Code(s): N39.0 - Urinary tract infection, site not specified Status: Acute Assessment and Plan: patient has multiple allergies and was started on Levaquin. I did ask pharmacy to renally dose it. Urine and blood cultures are pending. 05/07/20 16:01 patient is 74-year-old female resident [facility] with a history of dysphagia specially with pills and has G-tube, patient G-tube site had been leaking he was sent to emergency department for further evaluation patient was seen by GI and the G-tube was replaced apparently still leaking, patient also has history of anemia currently there is no complaint of bleeding black stool, apparently patient is able to have full liquid diet will continue and monitor. CT scan of abdominal also showed colonic stool and stool ball measuring 5.8 cm, and chronic kidney disease for which patient is seen by live in housekeeper and further recommendation to follow (2) Acute kidney injury: Code(s): N17.9 - Acute kidney failure, unspecified Status: Acute Assessment and Plan: The patient is cued on chronic renal failure. The patient has a history of chronic renal failure stage 4. Nephrology has been consulted. Will do a renal ultrasound as well. Patient had IV fluids in the emergency room. Hold Lasix for tonight. (3) Gastrostomy complication, unspecified: Code(s): K94.20 - Gastrostomy complication, unspecified Status: Acute Assessment and Plan: Dr. smith has been consulted. (4) Constipation: Code(s): K59.00 - Constipation, unspecified Status: Acute Assessment and Plan: Patient has a stool ball and MiraLax was ordered and she is also on Linzess. Will need to give her enemas as well. (5) Acute hyperkalemia: Code(s): E87.5 - Hyperkalemia Status: Chronic Assessment and Plan: Patient has some peaked T-waves. She was given a concoction in the emergency room. Will repeat her BMP. (6) Dementia: Code(s): F03.90 - Unspecified dementia without behavioral disturbance Status: Chronic Assessment and Plan: Patient denies is but she has a very poor historian. (7) Chronic anemia: Code(s): D64.9 - Anemia, unspecified Status: Chronic Assessment and Plan: GI was consulted for possible GI bleed. Check her H&H every 6 hours. She has chronic anemia most likely related to her chronic renal failure. the patient is on retacrit. She is also on ferrous sulfate. Continue with PPI her possibility of GI bleed. (8) Hyperparathyroidism: Code(s): E21.3 - Hyperparathyroidism, unspecified Status: Chronic Assessment and Plan: The patient is on calcitriol (9) Hypertension: Code(s): I10 - Essential (primary) hypertension Status: Chronic Assessment and Plan: continue with Norvasc Subjective Date/time seen: 05/07/20 16:01 patient is 74-year-old female resident of [facility] with a history of dysphagia specially with pills and has G-tube, patient G-tube site had been leaking he was sent to emergency department for further evaluation patient was seen by GI and the G-tube was replaced apparently still leaking, patient also has history of anemia currently there is no complaint of bleeding black stool, apparently patient is able to have full liquid diet will continue and monitor. CT scan of abdominal also showed colonic stool and stool ball measuring 5.8 cm, and chronic kidney disease for which patient is seen by live in housekeeper and further recommendation to follow Review of Systems Review of Systems: All systems reviewed & are unremarkable except as noted in HPI and below Exam Narrative: Exam Narrative: elderly frail under nourished Const: General: no acute distress and uncomfortable HENMT: General nose exam: Normal nares present Eyes: General: appearance normal, both e
[2020-05-07 17:19] LABS: Glucose Point of Care 57 (65-105)
[2020-05-07] MEDS: LIDOCAINE HCL 2% VISC SOLN 15 ML UDC (18:59)
[2020-05-07] MEDS: levoFLOXacin 500 MG/D5W 100 ML 500 MG/100 ML BAG 100 MG IVPB (19:06)
[2020-05-07] MEDS: SODIUM BICARBONATE 8.4% 75 MEQ in SODIUM CHLORIDE 0.45% 1,000 ML IV CONT (19:13)
[2020-05-07] MEDS: BISACODYL 10 MG SUPPOSITORY RECTAL (20:25)
[2020-05-07 20:48] LABS: Glucose Point of Care 77 (65-105)
[2020-05-07] MEDS: PANTOPRAZOLE SODIUM IV 40 MG VIAL IV PUSH (20:52)
[2020-05-08] VITALS (14 sets, daily range): BP systolic 177–188; BP diastolic 47–70; PULSE 70–91; RESP 14–20; TEMP 36.2–36.5; O2SAT 100
[2020-05-08] MEDS: TOLNAFTATE 1% POWDER 45 GM BTL 1 APPLIC TOPICAL ×3 (04:22→21:00)
--- NOTE | 2020-05-08 05:17 | PC.NURSE ---
Pt's IV went bad about 0300, pt did allow RN to try for another once. Attempt was unsuccessful and pt refuses another attempt.IV fluids on hold for now until day shift can try.
--- NOTE | 2020-05-08 06:52 | WPDGIPROGNO ---
Progress Note: A&P Assessment and Plan (1) Gastrostomy complication, unspecified: Code(s): K94.20 - Gastrostomy complication, unspecified Status: Acute Assessment and Plan: Patient has significant leakage around her G-tube site is uncertain if this is related to her previous gastric bypass. G-tube is not being utilized. It may be best option is to remove the G-tube if G-tube was removed it would be difficult to replace given her history of gastric bypass. Suggest obtaining old records regarding necessity of the G-tube prior to definitive removal. Subjective Date/time seen: 05/08/20 06:52 Patient continues to complain of leakage it her gastrostomy site. She states is been leaking for many years. New G-tube was placed yesterday. But continued leakage noted. Review of Systems Review of Systems: All systems reviewed & are unremarkable except as noted in HPI and below Exam Narrative: Exam Narrative: Physical exam abdomen is soft. She has some bilious leakage is around the G-tube site. Gastrografin study confirmed to be in good position. There is evidence of previous gastric bypass. Objective Data Vital Signs Vital Signs: Vital Signs - 24 hr 05/07/20 08:00 05/07/20 10:00 05/07/20 12:00 Temperature 97.4 F L 97.1 F L Pulse Rate 79 84 69 Respiratory Rate 14 12 Blood Pressure 158/66 H 181/64 H Pulse Oximetry 100 97 05/07/20 14:00 05/07/20 16:00 05/07/20 18:00 Temperature 97.5 F L Pulse Rate 82 93 85 Respiratory Rate 14 Blood Pressure 180/50 H Pulse Oximetry 93 05/07/20 20:00 05/07/20 22:00 05/08/20 00:00 Temperature 97.7 F 97.1 F L Pulse Rate 74 85 82 Respiratory Rate 14 14 Blood Pressure 183/95 H 188/58 H Pulse Oximetry 100 100 05/08/20 02:00 05/08/20 04:00 Temperature 97.1 F L Pulse Rate 81 79 Respiratory Rate 14 Blood Pressure 177/65 H Pulse Oximetry 100 Intake/Output Intake/Output: Intake & Output 05/05/20 05/06/20 05/07/20 05/08/20 23:59 23:59 23:59 23:59 Intake Total 550 1620 490 Output Total 950 2200 1350 Balance -400 -394 -860 Meds/Results Medications: Active Medications Generic Name Dose Route Start Last Admin Trade Name Freq PRN Reason Stop Dose Admin Amlodipine Besylate 10 mg 05/07/20 09:00 05/07/20 18:59 Norvasc PO Not Given DAILY [facility] Bisacodyl 10 mg 05/06/20 22:56 05/07/20 20:25 Dulcolax Suppository RECTAL 10 mg DAILY PRN Administration Constipation Calcitriol 0.5 mcg 05/07/20 09:00 05/07/20 18:59 Rocaltrol PO Not Given DAILY ROBIN Dextrose 12.5 gm 05/07/20 09:22 Dextrose 50% Syringe IV PUSH PRN PRN Hypoglycemia Protocol Epoetin Dusty-epbx 10,000 units 05/06/20 09:00 Retacrit SUB-Q Q14D [facility] Ferrous Sulfate 142 mg 05/07/20 09:00 05/07/20 18:59 Slow Fe 142 Mg PO Not Given DAILY [facility] Fluticasone Propionate 1 spray 05/06/20 22:56 Flonase 0.05% Nasal [place] NASAL PRN PRN Allergic Symptoms Glucagon 1 mg 05/07/20 09:22 Glucagon For Inj IM PRN PRN Hypoglycemia Protocol Glucose 15 gm 05/07/20 09:22 Glutose 15 PO PRN PRN Hypoglycemia Protocol Levofloxacin/Dextrose 500 mg in 100 mls @ 100 mls/hr 05/07/20 18:00 05/07/20 19:06 Levaquin 500 Mg/D5w 100 Ml IVPB 100 mls/hr Q48H [facility] Administration Dextrose 1,000 mls @ 100 mls/hr 05/07/20 09:22 Dextrose 5% 1,000 Ml IVPB PRN PRN Hypoglycemia Protocol Sodium Bicarbonate 75 meq/ 1,075 mls @ 0 mls/hr 05/07/20 14:45 05/08/20 03:00 Sodium Chloride IV CONT 0 mls/hr .Q0M [facility]IN Infusion Lidocaine 1 patch 05/07/20 09:00 05/07/20 19:00 Lidoderm TOPICAL Not Given DAILY [facility]IN Melatonin 5 mg 05/06/20 23:15 05/07/20 20:52 Melatonin PO Not Given HS ROBIN Mirabegron 25 mg 05/07/20 09:00 05/07/20 19:00 Myrbetriq PO Not Given DAILY [facility] Multivitamins/Minerals 1 tab 05/07/20 09:00 05/07/20
[2020-05-08 08:24] LABS: Glucose Point of Care 73 (65-105)
[2020-05-08] MEDS: PANTOPRAZOLE SODIUM IV 40 MG VIAL IV PUSH ×2 (11:19→21:00)
[2020-05-08 11:50] LABS: Hematocrit 23.6 % (37.0-47.0); Hemoglobin 7.1 g/dL (12.0-15.0); Mean Corpuscular HGB Conc 30.1 g/dl (32-36); Mean Corpuscular Hemoglobin 28.2 pg (26-34); Mean Corpuscular Volume 93.7 fl (80-100); Mean Platelet Volume 10.2 fl (7.4-10.4); Platelet Count Result 464 k/mm3 (150-375); Red Blood Count 2.52 M/mm3 (4.2-5.4); Red Cell Distribution Width 13.4 % (11.5-14.5); White Blood Count 12.9 K/mm3 (4.5-10.0)
[2020-05-08 12:02] LABS: Glucose Point of Care 70 (65-105)
[2020-05-08 12:04] LABS: Albumin Level 2.8 g/dL (3.5-5.1); Anion Gap 7 mmol/L (8-16); Blood Urea Nitrogen 75 mg/dL (7-17); Calcium 8.3 mg/dL (8.4-10.2); Carbon Dioxide 18 mmol/L (22-30); Chloride 114 mmol/L (98-107); Estimated CRCL calculation 8 ml/min; Estimated Glomerular Filt Rate 8; Glucose 86 mg/dL (65-105); Phosphorus 5.8 mg/dL (2.5-4.5); Potassium 5.6 mmol/L (3.4-5.0); Sodium 139 mmol/L (137-145)
[2020-05-08 12:30] LABS: Aspartate Amino Transferase 22 U/L (14-36); Bilirubin,Total 0.3 mg/dL (0.2-1.3)
[2020-05-08] MEDS: ONDANSETRON INJ 4 MG/2 ML VIAL IV PUSH ×2 (15:35→23:15)
--- NOTE | 2020-05-08 15:46 | PM.IMPN ---
Progress Note: A&P Assessment and Plan (1) UTI (urinary tract infection): Code(s): N39.0 - Urinary tract infection, site not specified Status: Acute Assessment and Plan: patient has multiple allergies and was started on Levaquin. I did ask pharmacy to renally dose it. Urine and blood cultures are pending. 05/08/20 15:46 patient is 74-year-old female resident of [facility] with a history of dysphagia specially with pills and has G-tube, patient G-tube site had been leaking he was sent to emergency department for further evaluation patient was seen by GI and the G-tube was replaced apparently still leaking, I spoke with Dr. Okeefe at [facility] G tube was placed for ERCP after her gastric bypass surgery in November of 2019 and supposed to removed after 10 days but patient did not go back to the hospital, I was asked to remove the G tube, I have discussed with Dr. Forrester will remove the tube tomorrow, patient also has history of anemia currently there is no complaint of bleeding black stool or bleeding, , apparently patient is able to have regular diet will continue and monitor. CT scan of abdominal also showed colonic stool and stool ball measuring 5.8 cm and patient on norcotics for pain control will give reglan, dulcolax suppository for constipation, and chronic kidney disease for which patient is seen by cdl bulk driver and further recommendation to follow, After G tube removal tomorrow patient is clinically stable, will discharge patient back to [place]. (2) Acute kidney injury: Code(s): N17.9 - Acute kidney failure, unspecified Status: Acute Assessment and Plan: The patient is cued on chronic renal failure. The patient has a history of chronic renal failure stage 4. Nephrology has been consulted. Will do a renal ultrasound as well. Patient had IV fluids in the emergency room. Hold Lasix for tonight. (3) Gastrostomy complication, unspecified: Code(s): K94.20 - Gastrostomy complication, unspecified Status: Acute Assessment and Plan: Dr. forrester has been consulted. (4) Constipation: Code(s): K59.00 - Constipation, unspecified Status: Acute Assessment and Plan: Patient has a stool ball and MiraLax was ordered and she is also on Linzess. Will need to give her enemas as well. (5) Acute hyperkalemia: Code(s): E87.5 - Hyperkalemia Status: Chronic Assessment and Plan: Patient has some peaked T-waves. She was given a concoction in the emergency room. Will repeat her BMP. (6) Dementia: Code(s): F03.90 - Unspecified dementia without behavioral disturbance Status: Chronic Assessment and Plan: Patient denies is but she has a very poor historian. (7) Chronic anemia: Code(s): D64.9 - Anemia, unspecified Status: Chronic Assessment and Plan: GI was consulted for possible GI bleed. Check her H&H every 6 hours. She has chronic anemia most likely related to her chronic renal failure. the patient is on retacrit. She is also on ferrous sulfate. Continue with PPI her possibility of GI bleed. (8) Hyperparathyroidism: Code(s): E21.3 - Hyperparathyroidism, unspecified Status: Chronic Assessment and Plan: The patient is on calcitriol (9) Hypertension: Code(s): I10 - Essential (primary) hypertension Status: Chronic Assessment and Plan: continue with Norvasc Subjective Date/time seen: 05/08/20 15:46 patient is 74-year-old female resident of [facility] with a history of dysphagia specially with pills and has G-tube, patient G-tube site had been leaking he was sent to emergency department for further evaluation patient was seen by GI and the G-tube was replaced apparently still leaking, I spoke with Dr. Okeefe at [facility] G tube was placed for ERCP after her gastric bypass surgery in November of 2019 and supposed to removed after 10 days but patient did not go b
--- NOTE | 2020-05-08 16:08 | ECG_ITS ---
Measurements Intervals [place] Rate: 88 P: 55 MA: 153 QRS: 30 QRSD: 81 T: 11 QT: 331 QTc: 402 Interpretive Statements SINUS RHYTHM BASELINE ARTIFACT- I, II, III, AVR, AVL, AVF, V1-V2 NORMAL ECG Electronically Signed On 05-08-2020 21:54:22 CDT by Harjinder Sabillon D.O.
[2020-05-08] MEDS: BISACODYL 10 MG SUPPOSITORY RECTAL (16:38)
--- NOTE | 2020-05-08 16:43 | P.PNNP_ITS ---
Progress Note: A&P Assessment and Plan (1) PING (acute kidney injury): Code(s): N17.9 - Acute kidney failure, unspecified Status: Acute Assessment and Plan: * etiology?? * no improvement with IVFs * renal ultrasound noted * possible multiple myeloma -- lytic bone lesions would be explained by this - checking SPE, UPE, kappa/lamda ratio and consider bone scan - skeletal survey ordered * continue to make/have good urine output * follow trend of repeat labs and UOP (2) Chronic kidney disease, stage IV (severe): Code(s): N18.4 - Chronic kidney disease, stage 4 (severe) Status: Chronic Assessment and Plan: * baseline creatinine ~ 2.5 - 2.0mg/dl * presumable due to HTN and age-related change along with a previous hx of diabetes(?) * has she seen a program director substance abuse in the past??? -- she is on several medications that a kidney specialist would prescribe including Epogen, calcitriol, sodium bicarbonate....etc (3) Acute hyperkalemia: Code(s): E87.5 - Hyperkalemia Status: Chronic Assessment and Plan: * due to PING * follow trend of repeat values (4) Anemia: Code(s): D64.9 - Anemia, unspecified Status: Acute Assessment and Plan: * apparently a chronic issue * CKD probably playing a role * PING may reason for worsening * check iron studies * continue outpatient Epogen therapy * follow trend of H/H (5) Gastrostomy complication, unspecified: Code(s): K94.20 - Gastrostomy complication, unspecified Status: Acute Assessment and Plan: * Gastroentrology following * G-tube already exchanged yesterday AM * however, since it is apparently not even needed, plan removal tomorrow (6) Hypertension: Code(s): I10 - Essential (primary) hypertension Status: Chronic Assessment and Plan: * somewhat erratic at this time * folow trend for now * likely to need further medication adjustment Will continue to follow. Subjective Date/time seen: 05/08/20 16:43 Still having issues with leakage from G-tube and tentatively plan now is to remove this since apparently she no longer needed; making urine but renal function has not really improved; having some nausea/vomiting as well (due to renal failure versus constipation issues as noted on CT scan abdomen). Exam Narrative: Exam Narrative: General: thin AA female in NAD Heart: normal S1 and S2; no rub Lungs: clear to auscultation Abdomen: soft, nontender, nondistended, positive bowel sounds Extremities: no cyanosis or clubbing; trace edema Skin: warm and dry Objective Data Vital Signs Vital Signs: Vital Signs Temp Pulse Resp BP Pulse Ox 05/08/20 09:30 36.2 C L 78 18 180/47 H 05/08/20 06:00 91 05/08/20 04:00 36.2 C L 83 14 177/65 H 05/08/20 02:00 81 05/08/20 00:00 36.2 C L 82 14 188/58 H 05/07/20 22:00 85 05/07/20 20:00 36.5 C 74 14 183/95 H 05/07/20 18:00 85 Intake/Output Intake/Output: Intake & Output 05/05/20 05/06/20 05/07/20 05/08/20 23:59 23:59 23:59 23:59 Intake Total 550 1620 610 Output Total 950 2200 1350 Balance -400 -736 -740 Meds/Results Medications: Active Medications Generic Name Dose Route Start La
--- NOTE | 2020-05-08 16:43 | PM.PNNEP ---
Progress Note: A&P Assessment and Plan (1) PING (acute kidney injury): Code(s): N17.9 - Acute kidney failure, unspecified Status: Acute Assessment and Plan: etiology?? no improvement with IVFs renal ultrasound noted possible multiple myeloma -- lytic bone lesions would be explained by this - checking SPE, UPE, kappa/lamda ratio and consider bone scan - skeletal survey ordered continue to make/have good urine output follow trend of repeat labs and UOP (2) Chronic kidney disease, stage IV (severe): Code(s): N18.4 - Chronic kidney disease, stage 4 (severe) Status: Chronic Assessment and Plan: baseline creatinine ~ 2.5 - 2.0mg/dl presumable due to HTN and age-related change along with a previous hx of diabetes(?) has she seen a solar field installation crew member in the past??? -- she is on several medications that a kidney specialist would prescribe including Epogen, calcitriol, sodium bicarbonate....etc (3) Acute hyperkalemia: Code(s): E87.5 - Hyperkalemia Status: Chronic Assessment and Plan: due to PING follow trend of repeat values (4) Anemia: Code(s): D64.9 - Anemia, unspecified Status: Acute Assessment and Plan: apparently a chronic issue CKD probably playing a role PING may reason for worsening check iron studies continue outpatient Epogen therapy follow trend of H/H (5) Gastrostomy complication, unspecified: Code(s): K94.20 - Gastrostomy complication, unspecified Status: Acute Assessment and Plan: Gastroentrology following G-tube already exchanged yesterday AM however, since it is apparently not even needed, plan removal tomorrow (6) Hypertension: Code(s): I10 - Essential (primary) hypertension Status: Chronic Assessment and Plan: somewhat erratic at this time folow trend for now likely to need further medication adjustment Will continue to follow. Subjective Date/time seen: 05/08/20 16:43 Still having issues with leakage from G-tube and tentatively plan now is to remove this since apparently she no longer needed; making urine but renal function has not really improved; having some nausea/vomiting as well (due to renal failure versus constipation issues as noted on CT scan abdomen). Exam Narrative: Exam Narrative: General: thin AA female in NAD Heart: normal S1 and S2; no rub Lungs: clear to auscultation Abdomen: soft, nontender, nondistended, positive bowel sounds Extremities: no cyanosis or clubbing; trace edema Skin: warm and dry Objective Data Vital Signs Vital Signs: Vital Signs Temp Pulse Resp BP Pulse Ox 05/08/20 09:30 36.2 C L 78 18 180/47 H 100 05/08/20 06:00 91 05/08/20 04:00 36.2 C L 83 14 177/65 H 05/08/20 02:00 81 05/08/20 00:00 36.2 C L 82 14 188/58 H 05/07/20 22:00 85 05/07/20 20:00 36.5 C 74 14 183/95 H 05/07/20 18:00 85 Intake/Output Intake/Output: Intake & Output 05/05/20 05/06/20 05/07/20 05/08/20 23:59 23:59 23:59 23:59 Intake Total 550 1620 610 Output Total 950 2200 1350 Balance -400 -580 -740 Meds/Results Medications: Active Medications Generic Name Dose Route Start Last Admin Trade Name Freq PRN Reason Stop Dose Admin Amlodipine Besylate 10 mg 05/07/20 09:00 05/08/20 10:47 Norvasc PO Not Given DAILY [facility] Bisacodyl 10 mg 05/06/20 22:56 05/08/20 16:38 Dulcolax Suppository RECTAL 10 mg DAILY PRN Administration Constipation Calcitriol 0.5 mcg 05/07/20 09:00 05/08/20 10:48 Rocaltrol PO Not Given DAILY [facility] Dextrose 12.5 gm 05/07/20 09:22 Dextrose 50% Syringe IV PUSH PRN PRN Hypoglycemia Protocol Epoetin Dusty-epbx 10,000 units 05/09/20 09:00 Retacrit SUB-Q [id number] [facility] Ferrous Sulfate 142 mg 05/07/20 09:00 05/08/20 10:48 Slow Fe 142 Mg PO Not Given DAILY [facility] F
[2020-05-08 17:02] LABS: Glucose Point of Care 75 (65-105)
--- NOTE | 2020-05-08 20:10 | PC.NURSE ---
Patient downgraded to Medical status per Dr. Ramos. notifed of copious drainage from G-tube and emesis at 1530. reversed status to IMU. Suppository given.
[2020-05-08 20:52] LABS: Glucose Point of Care 77 (65-105)
[2020-05-08] MEDS: MELATONIN 5 MG TABLET PO (20:58)
[2020-05-08] MEDS: traZODone HCL 50 MG TABLET PO (20:58)
[2020-05-08] MEDS: SUCRALFATE 1 GM TABLET BY MOUTH (21:00)
--- NOTE | 2020-05-08 21:02 | PC.NURSE ---
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 She is upset that she can't order from kitchen when she wants, complaints people aren't coming in her room enough (several people have been in in the past hour)
--- NOTE | 2020-05-08 21:13 | PC.NURSE ---
Changed dressing she initially refused but ultimately did allow me to change it. She had multiple complaints during ex. she is actually yelling at me as I type this accusing me of shaking my head at her cause Im looking up and down at the screen. She states she has a cellphone that is missing she knows someone stole it
--- NOTE | 2020-05-08 23:31 | PC.NURSE ---
Changed dressing on pt and gave zofran cause she throw up the little bit of chips she ate. I called Chiquita she said to make her a Liquid diet.
[2020-05-09] VITALS (9 sets, daily range): BP systolic 135–189; BP diastolic 53–74; PULSE 66–91; RESP 12–18; TEMP 36.2–37.4; O2SAT 98–100; BMI 18.4
--- NOTE | 2020-05-09 03:41 | PC.NURSE ---
Pt has insisted on new hot blankets and sheets nearly hourly. We have went through 2 large linen bags this shift alone cause she wants them changed once they cool down they are not soiled in any way. I asked house superintendent since it has gotten excessive she told me to tell her there were no more warm blankets she is now demanding to speak with a packaging supervisor. I let the packaging supervisor know.
[2020-05-09] MEDS: TOLNAFTATE 1% POWDER 45 GM BTL 1 APPLIC TOPICAL ×2 (04:42→22:38)
[2020-05-09 05:06] LABS: Mean Corpuscular HGB Conc 30.6 g/dl (32-36); Mean Corpuscular Hemoglobin 28.4 pg (26-34); Mean Corpuscular Volume 92.9 fl (80-100); Mean Platelet Volume 9.6 fl (7.4-10.4); Platelet Count Result 466 k/mm3 (150-375); Red Blood Count 2.25 M/mm3 (4.2-5.4); Red Cell Distribution Width 13.2 % (11.5-14.5); White Blood Count 12.7 K/mm3 (4.5-10.0)
--- NOTE | 2020-05-09 05:08 | PC.NURSE ---
Pt is upset yelling demanding a cement finishing supervisor again cause she wants a sandwich. Chiquita spoke to her around midnight and told she would be npo. I have told her she was npo per dr. morales. House has been notified pt is still yelling stating I am refusing to let her talk to a cement finishing supervisor.
[2020-05-09 05:18] LABS: Albumin Level 2.3 g/dL (3.5-5.1); Anion Gap 6 mmol/L (8-16); Blood Urea Nitrogen 67 mg/dL (7-17); Calcium 7.9 mg/dL (8.4-10.2); Carbon Dioxide 20 mmol/L (22-30); Chloride 114 mmol/L (98-107); Estimated CRCL calculation 8 ml/min; Estimated Glomerular Filt Rate 9; Glucose 82 mg/dL (65-105); Phosphorus 6.6 mg/dL (2.5-4.5); Potassium 4.9 mmol/L (3.4-5.0); Sodium 140 mmol/L (137-145)
[2020-05-09 05:19] LABS: Hematocrit 20.9 % (37.0-47.0); Hemoglobin 6.4 g/dL (12.0-15.0)
[2020-05-09 05:30] LABS: Iron 39 ug/dL (37-170)
[2020-05-09 05:39] LABS: Percent Iron Saturation 26 % (20-50)
[2020-05-09 08:17] LABS: Glucose Point of Care 72 (65-105)
[2020-05-09] MEDS: EPOETIN ALFA-EPBX 10,000 UNITS/ML VIAL 10000 UNITS SUB-Q (10:34)
[2020-05-09] MEDS: PANTOPRAZOLE SODIUM IV 40 MG VIAL IV PUSH ×2 (10:38→20:20)
[2020-05-09] MEDS: LIDOCAINE 5% PATCH 1 PATCH TOPICAL (10:38)
--- NOTE | 2020-05-09 11:14 | WPDGIPROGNO ---
Progress Note: A&P Assessment and Plan (1) Gastrostomy complication, unspecified: Code(s): K94.20 - Gastrostomy complication, unspecified Status: Acute Assessment and Plan: [facility] was contacted were G-tube was placed apparently G-tube was placed because of previous gastric bypass G-tube was placed into the distal stomach to allow access into the duodenal area of so that an ERCP could be performed patient apparently never returned to have the G-tube removed. After discussion with [facility] was decided that G-tube is no longer necessary. For that reason it was removed today. 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 (2) Constipation: Code(s): K59.00 - Constipation, unspecified Status: Acute Assessment and Plan: Patient apparently has a stool ball noted on imaging. Plan is for RA soap suds enema today. Continue laxatives as needed. (3) PING (acute kidney injury): Code(s): N17.9 - Acute kidney failure, unspecified Status: Acute (4) Anemia: Code(s): D64.9 - Anemia, unspecified Status: Acute Assessment and Plan: No sign of active bleeding patient remains on Epogen. Plan is to transfuse as necessary monitor hemoglobin. Subjective Date/time seen: 05/09/20 11:14 Patient states she is very hungry. Still notes leakage at the G-tube site. She has had minimal bowel movements since admission according to nursing staff. Review of Systems Review of Systems: All systems reviewed & are unremarkable except as noted in HPI and below Exam Narrative: Exam Narrative: Physical exam reveals her to be alert. Anicteric. Lungs are clear. Heart without murmur. Abdomen reveals G-tube remains in site skin feels some excoriation around. Internal bumper of the G-tube is deflated G-tube is removed will plan to keep gauze dressing on the outside allow this to heal over. Objective Data Vital Signs Vital Signs: Vital Signs - 24 hr 05/08/20 12:00 05/08/20 16:00 05/08/20 16:54 Temperature 97.6 F Pulse Rate 84 70 80 Respiratory Rate 20 Blood Pressure 184/70 H Pulse Oximetry 100 100 100 05/08/20 18:00 05/08/20 19:30 05/08/20 20:00 Temperature 97.7 F Pulse Rate 81 85 85 Respiratory Rate 16 Blood Pressure 187/69 H Pulse Oximetry 100 05/08/20 22:00 05/09/20 00:00 05/09/20 02:00 Temperature 97.4 F L Pulse Rate 78 84 91 Respiratory Rate 18 Blood Pressure 176/74 H Pulse Oximetry 100 05/09/20 04:00 05/09/20 04:12 05/09/20 06:00 Temperature 97.5 F L Pulse Rate 77 78 83 Respiratory Rate 18 Blood Pressure 173/63 H Pulse Oximetry 100 05/09/20 08:00 Temperature 97.1 F L Pulse Rate 75 Respiratory Rate 12 Blood Pressure 164/67 H Pulse Oximetry 100 Intake/Output Intake/Output: Intake & Output 05/06/20 05/07/20 05/08/20 05/09/20 23:59 23:59 23:59 23:59 Intake Total 550 1620 1077 Output Total 950 2200 2625 800 Balance -400 -580 -1548 -800 Meds/Results Medications: Active Medications Generic Name Dose Route Start Last Admin Trade Name Freq PRN Reason Stop Dose Admin Amlodipine Besylate 10 mg 05/07/20 09:00 05/08/20 10:47 Norvasc PO Not Given DAILY [facility] Bisacodyl 10 mg 05/06/20 22:56 05/08/20 16:38 Dulcolax Suppository RECTAL 10 mg DAILY PRN Administration Constipation Calcitriol 0.5 mcg 05/07/20 09:00 05/08/20 10:48 Rocaltrol PO Not Given DAILY [facility] Dextrose 12.5 gm 05/07/20 09:22 Dextrose 50% Syringe IV PUSH PRN PRN Hypoglycemia Protocol Epoetin Dusty-epbx 10,000 units 05/09/20 09:00 05/09/20 10:34 Retacrit SUB-Q 10,000 units [id number]@[id number] [facility] Administration Ferrous Sulfate 142 mg 05/07/20 09:00 05/08/20 10:48 Slow Fe 142 Mg PO Not Given DAILY [facility] Fluticasone Propionate 1 spray 05/06/20 22:56 Flonase 0.05% Nasal [place] NASAL
[2020-05-09 12:15] LABS: Glucose Point of Care 86 (65-105)
[2020-05-09 12:54] LABS: Hematocrit 23.3 % (37.0-47.0); Hemoglobin 7.1 g/dL (12.0-15.0)
--- NOTE | 2020-05-09 16:56 | PM.IMPN ---
Progress Note: A&P Assessment and Plan (1) UTI (urinary tract infection): Code(s): N39.0 - Urinary tract infection, site not specified Status: Acute Assessment and Plan: patient has multiple allergies and was started on Levaquin. I did ask pharmacy to renally dose it. Urine and blood cultures are pending. 05/09/20 16:56 patient is 74-year-old female resident of [facility] with a history of dysphagia specially with pills and has G-tube, patient G-tube site had been leaking he was sent to emergency department for further evaluation patient was seen by GI and the G-tube was replaced apparently still leaking, I spoke with Dr. Okeefe at [facility] G tube was placed for ERCP after her gastric bypass surgery in November of 2019 and supposed to removed after 10 days but patient did not go back to the hospital, I was asked to remove the G tube, I have discussed with Dr. Forrester will remove the tube tomorrow, patient also has history of anemia currently there is no complaint of bleeding black stool or bleeding, , apparently patient is able to have regular diet will continue and monitor. CT scan of abdominal also showed colonic stool and stool ball measuring 5.8 cm and patient on norcotics for pain control will give reglan, dulcolax suppository for constipation, today discussed with Dr. Forrester the G-tube was removed, started the patient on soapsuds enema for constipation, start the patient on clear liquid and patient with history of chronic kidney disease for which patient is seen by storeroom supervisor and further recommendation to follow, if patient remains clinically stable may be discharged to [facility] tomorrow (2) Acute kidney injury: Code(s): N17.9 - Acute kidney failure, unspecified Status: Acute Assessment and Plan: The patient is cued on chronic renal failure. The patient has a history of chronic renal failure stage 4. Nephrology has been consulted. Will do a renal ultrasound as well. Patient had IV fluids in the emergency room. Hold Lasix for tonight. (3) Gastrostomy complication, unspecified: Code(s): K94.20 - Gastrostomy complication, unspecified Status: Acute Assessment and Plan: Dr. forrester has been consulted. (4) Constipation: Code(s): K59.00 - Constipation, unspecified Status: Acute Assessment and Plan: Patient has a stool ball and MiraLax was ordered and she is also on Linzess. Will need to give her enemas as well. (5) Acute hyperkalemia: Code(s): E87.5 - Hyperkalemia Status: Chronic Assessment and Plan: Patient has some peaked T-waves. She was given a concoction in the emergency room. Will repeat her BMP. (6) Dementia: Code(s): F03.90 - Unspecified dementia without behavioral disturbance Status: Chronic Assessment and Plan: Patient denies is but she has a very poor historian. (7) Chronic anemia: Code(s): D64.9 - Anemia, unspecified Status: Chronic Assessment and Plan: GI was consulted for possible GI bleed. Check her H&H every 6 hours. She has chronic anemia most likely related to her chronic renal failure. the patient is on retacrit. She is also on ferrous sulfate. Continue with PPI her possibility of GI bleed. (8) Hyperparathyroidism: Code(s): E21.3 - Hyperparathyroidism, unspecified Status: Chronic Assessment and Plan: The patient is on calcitriol (9) Hypertension: Code(s): I10 - Essential (primary) hypertension Status: Chronic Assessment and Plan: continue with Norvasc Subjective Date/time seen: 05/09/20 16:56 patient is 74-year-old female resident of [facility] with a history of dysphagia specially with pills and has G-tube, patient G-tube site had been leaking he was sent to emergency department for further evaluation patient was seen by GI and the G-tube was replaced apparently still leaking, I spoke with Dr. Abraham
[2020-05-09] MEDS: SUCRALFATE 1 GM TABLET BY MOUTH ×2 (17:20→20:19)
[2020-05-09] MEDS: amLODIPine BESYLATE 5 MG TABLET 10 MG PO (17:30)
--- NOTE | 2020-05-09 17:31 | P.PNNP_ITS ---
Progress Note: A&P Assessment and Plan (1) PING (acute kidney injury): Code(s): N17.9 - Acute kidney failure, unspecified Status: Acute Assessment and Plan: * etiology?? * no improvement with IVFs * renal ultrasound noted * possible multiple myeloma -- lytic bone lesions would be explained by this - checking SPE, UPE, kappa/lamda ratio and consider bone scan - skeletal survey ordered * continue to make/have good urine output * follow trend of repeat labs and UOP * pt is confident that the kidneys will get better. * consider a renal biopsy: (2) Chronic kidney disease, stage IV (severe): Code(s): N18.4 - Chronic kidney disease, stage 4 (severe) Status: Chronic Assessment and Plan: * baseline creatinine ~ 2.5 - 2.0mg/dl * presumable due to HTN and age-related change along with a previous hx of diabetes(?) * difficult to teas out the acute from the chronic. (3) Acute hyperkalemia: Code(s): E87.5 - Hyperkalemia Status: Chronic Assessment and Plan: * due to PING * potassium good today (4) Anemia: Code(s): D64.9 - Anemia, unspecified Status: Acute Assessment and Plan: * apparently a chronic issue * CKD probably playing a role * PING may reason for worsening * getting epo. * tsat okay (5) Gastrostomy complication, unspecified: Code(s): K94.20 - Gastrostomy complication, unspecified Status: Acute Assessment and Plan: * Gastroentrology following * G-tube already exchanged yesterday AM * however, since it is apparently not even needed, plan removal tomorrow (6) Hypertension: Code(s): I10 - Essential (primary) hypertension Status: Chronic Assessment and Plan: * pretty much always high. * on amlod 10 * change to nifedipine 60. Will continue to follow. Subjective Date/time seen: 05/09/20 17:31 Interval history: pt feels about the same she says wants more to eat. not eating much because of the restrictions she says. wants a pickle (Not on any diet) Review of Systems Cardiovascular: Cardiovascular: Reports no additional cardiovascular complaints Respiratory: Respiratory: Reports no additional respiratory complaints Gastrointestinal: Gastrointestinal: Reports no additional gastrointestinal complaints Genitourinary: Genitourinary: Reports no additional female genitourinary complaints Exam Narrative: Exam Narrative: WDWN thin lady in NAD skin no rash head ncat lungs clear cor reg no rub abd BS+ nontender and soft ext no edema. Objective Data Vital Signs Vital Signs: Vital Signs - 24 hr 05/08/20 18:00 05/08/20 19:30 05/08/20 20:00 Temperature 36.5 C Pulse Rate 81 85 85 Respiratory Rate 16 Blood Pressure 187/69 H Pulse Oximetry 100 05/08/20 22:00 05/09/20 00:00 05/09/20 02:00 Temperature 36.3 C L Pulse Rate 78 84 91 Respiratory Rate 18 Blood Pressure 176/74 H Pulse Oximetry 100 05/09/20 04:00 05/09/20 04:12 05/09/20 06:00 Temperature 36.4 C L Pulse Rate 77 78 83 Respiratory Rate 18 Blood Pressure 173/63 H Pulse Oximetry 100 05/09/20 08:00 05/09/20 12:16 05/09/20
--- NOTE | 2020-05-09 17:31 | PM.PNNEP ---
Progress Note: A&P Assessment and Plan (1) PING (acute kidney injury): Code(s): N17.9 - Acute kidney failure, unspecified Status: Acute Assessment and Plan: etiology?? no improvement with IVFs renal ultrasound noted possible multiple myeloma -- lytic bone lesions would be explained by this - checking SPE, UPE, kappa/lamda ratio and consider bone scan - skeletal survey ordered continue to make/have good urine output follow trend of repeat labs and UOP pt is confident that the kidneys will get better. consider a renal biopsy: (2) Chronic kidney disease, stage IV (severe): Code(s): N18.4 - Chronic kidney disease, stage 4 (severe) Status: Chronic Assessment and Plan: baseline creatinine ~ 2.5 - 2.0mg/dl presumable due to HTN and age-related change along with a previous hx of diabetes(?) difficult to teas out the acute from the chronic. (3) Acute hyperkalemia: Code(s): E87.5 - Hyperkalemia Status: Chronic Assessment and Plan: due to PING potassium good today (4) Anemia: Code(s): D64.9 - Anemia, unspecified Status: Acute Assessment and Plan: apparently a chronic issue CKD probably playing a role PING may reason for worsening getting epo. tsat okay (5) Gastrostomy complication, unspecified: Code(s): K94.20 - Gastrostomy complication, unspecified Status: Acute Assessment and Plan: Gastroentrology following G-tube already exchanged yesterday AM however, since it is apparently not even needed, plan removal tomorrow (6) Hypertension: Code(s): I10 - Essential (primary) hypertension Status: Chronic Assessment and Plan: pretty much always high. on amlod 10 change to nifedipine 60. Will continue to follow. Subjective Date/time seen: 05/09/20 17:31 Interval history: pt feels about the same she says wants more to eat. not eating much because of the restrictions she says. wants a pickle (Not on any diet) Review of Systems Cardiovascular: Cardiovascular: Reports no additional cardiovascular complaints Respiratory: Respiratory: Reports no additional respiratory complaints Gastrointestinal: Gastrointestinal: Reports no additional gastrointestinal complaints Genitourinary: Genitourinary: Reports no additional female genitourinary complaints Exam Narrative: Exam Narrative: WDWN thin lady in NAD skin no rash head ncat lungs clear cor reg no rub abd BS+ nontender and soft ext no edema. Objective Data Vital Signs Vital Signs: Vital Signs - 24 hr 05/08/20 18:00 05/08/20 19:30 05/08/20 20:00 Temperature 36.5 C Pulse Rate 81 85 85 Respiratory Rate 16 Blood Pressure 187/69 H Pulse Oximetry 100 05/08/20 22:00 05/09/20 00:00 05/09/20 02:00 Temperature 36.3 C L Pulse Rate 78 84 91 Respiratory Rate 18 Blood Pressure 176/74 H Pulse Oximetry 100 05/09/20 04:00 05/09/20 04:12 05/09/20 06:00 Temperature 36.4 C L Pulse Rate 77 78 83 Respiratory Rate 18 Blood Pressure 173/63 H Pulse Oximetry 100 05/09/20 08:00 05/09/20 12:16 05/09/20 16:00 Temperature 36.2 C L 36.3 C L 36.6 C Pulse Rate 75 77 82 Respiratory Rate 12 12 12 Blood Pressure 164/67 H 179/53 H 189/56 H Pulse Oximetry 100 100 100 Intake/Output Intake/Output: Intake & Output 05/06/20 05/07/20 05/08/20 05/09/20 23:59 23:59 23:59 23:59 Intake Total 550 1620 1077 Output Total 950 2200 2625 1700 Balance -400 -580 -1548 -1700 Meds/Results Medications: Active Medications Generic Name Dose Route Start Last Admin Trade Name Freq PRN Reason Stop Dose Admin Amlodipine Besylate 10 mg 05/07/20 09:00 05/09/20 12:18 Norvasc PO Not Given DAILY ROBIN Bisacodyl 10 mg 05/06/20 22:56 05/08/20 16:38 Dulcolax Suppository RECTAL 10 mg DAILY PRN Administration Constipation Calcitriol 0.5 mcg 05/07/20 09:00 05/09/20 1
--- NOTE | 2020-05-09 17:44 | PC.NURSE ---
This patient, Sangeetha Cox, was transferred to [facility] on 05/09/20 at 1633. Personal belongings sent with patient. Report given to Sincere SCHULTZ. Appropriate documentation sent with patient.
--- NOTE | 2020-05-09 18:49 | PC.NURSE ---
Pt transferred from IMU 200 at 1635. Admitted to room 324-2. PT introduced to floor, policies, meds, new diet order.
[2020-05-09] MEDS: levoFLOXacin 500 MG/D5W 100 ML 500 MG/100 ML BAG 100 MG IVPB (18:55)
[2020-05-09 18:59] LABS: Glucose Point of Care 73 (65-105)
[2020-05-09] MEDS: MELATONIN 5 MG TABLET PO (20:19)
[2020-05-09] MEDS: diphenhydrAMINE HCl CAP 25 MG CAPSULE PO (20:19)
[2020-05-09] MEDS: CALCIUM CARBONATE (TUMS) 500 MG (200 MG ELEMENTAL) PO (20:35)
[2020-05-10 06:00] VITALS: BP 134/74; PULSE 71; RESP 18; TEMP 37.6; O2SAT 99
[2020-05-10 06:29] LABS: Hematocrit 21.5 % (37.0-47.0); Mean Corpuscular HGB Conc 30.7 g/dl (32-36); Mean Corpuscular Hemoglobin 28.7 pg (26-34); Mean Corpuscular Volume 93.5 fl (80-100); Mean Platelet Volume 10.1 fl (7.4-10.4); Platelet Count Result 446 k/mm3 (150-375); Red Cell Distribution Width 13.2 % (11.5-14.5); White Blood Count 13.9 K/mm3 (4.5-10.0)
[2020-05-10 06:32] LABS: Hemoglobin 6.6 g/dL (12.0-15.0)
[2020-05-10 06:38] LABS: Albumin Level 2.4 g/dL (3.5-5.1); Anion Gap 6 mmol/L (8-16); Blood Urea Nitrogen 63 mg/dL (7-17); Calcium 7.6 mg/dL (8.4-10.2); Carbon Dioxide 18 mmol/L (22-30); Chloride 112 mmol/L (98-107); Estimated CRCL calculation 8 ml/min; Estimated Glomerular Filt Rate 9; Glucose 76 mg/dL (65-105); Phosphorus 6.3 mg/dL (2.5-4.5); Potassium 4.9 mmol/L (3.4-5.0); Sodium 136 mmol/L (137-145)
[2020-05-10] MEDS: TOLNAFTATE 1% POWDER 45 GM BTL 1 APPLIC TOPICAL ×3 (07:34→22:25)
--- NOTE | 2020-05-10 07:52 | P.PNNP_ITS ---
Progress Note: A&P Assessment and Plan (1) PING (acute kidney injury): Code(s): N17.9 - Acute kidney failure, unspecified Status: Acute Assessment and Plan: * etiology?? * no improvement with IVFs * renal ultrasound shows no hydronephrosis. Echogenic kidneys of borderline size. * possible multiple myeloma -- lytic bone lesions would be explained by this - checking SPE, UPE, kappa/lamda ratio and consider bone scan - skeletal survey ordered But still not done. Will reorder. * Urine output doing well. * Volume status looks okay. * I discussed with the patient. Her creatinine is not getting better. If I knew the kidneys were not going to get better then I would suggest dialysis. She does not want any part of dialysis. I asked her if she would do it if it meant that she would without it. She says that her kidneys will get better. I asked her if she wanted hospice and she does not want to . * We discussed kidney biopsy as well. Her kidneys are not getting better, fluids are not helping, and we do not know if there is something treated will going on in the kidneys. We discussed risks benefits and the process of dialysis. She does not want to do this either. She wants to talk with her family. She wants to go home for 2 weeks. I will come back tomorrow to discuss this further. (2) Chronic kidney disease, stage IV (severe): Code(s): N18.4 - Chronic kidney disease, stage 4 (severe) Status: Chronic Assessment and Plan: * baseline creatinine ~ 2.5 - 2.0mg/dl * presumable due to HTN and age-related change along with a previous hx of diabetes(?) * difficult to teas out the acute from the chronic. (3) Acute hyperkalemia: Code(s): E87.5 - Hyperkalemia Status: Chronic Assessment and Plan: * due to PING * potassium good today (4) Anemia: Code(s): D64.9 - Anemia, unspecified Status: Acute Assessment and Plan: * apparently a chronic issue * CKD probably playing a role * PING may reason for worsening * getting epo. * tsat okay * Patient is scheduled to get blood transfusion. (5) Gastrostomy complication, unspecified: Code(s): K94.20 - Gastrostomy complication, unspecified Status: Acute Assessment and Plan: * Gastroentrology following * G-tube already exchanged yesterday AM * however, since it is apparently not even needed, plan removal tomorrow (6) Hypertension: Code(s): I10 - Essential (primary) hypertension Status: Chronic Assessment and Plan: * Blood pressure is better this morning. * on amlod 10 * change to nifedipine 60. Will continue to follow. Subjective Date/time seen: 05/10/20 07:52 Interval history: pt feels about the same she says she wants to go home. She wants to eat breakfast. No shortness of breath or swelling. Review of Systems Cardiovascular: Cardiovascular: Reports no additional cardiovascular complaints Respiratory: Respiratory: Reports no additional respiratory complaints Gastrointestinal: Gastrointestinal: Reports no additional gastrointestinal complaints Genitourinary: Genitourinary: Reports no additional female genitourinary complaints Exam Narrative: Exam Narrative: Thin female in no acute distress. Lungs are clear Heart regular rate and rhythm without rub. Skin no rash. Extremities no edema. Abdomen bowel sounds positive soft nonten
--- NOTE | 2020-05-10 07:52 | PM.PNNEP ---
Progress Note: A&P Assessment and Plan (1) PING (acute kidney injury): Code(s): N17.9 - Acute kidney failure, unspecified Status: Acute Assessment and Plan: etiology?? no improvement with IVFs renal ultrasound shows no hydronephrosis. Echogenic kidneys of borderline size. possible multiple myeloma -- lytic bone lesions would be explained by this - checking SPE, UPE, kappa/lamda ratio and consider bone scan - skeletal survey ordered But still not done. Will reorder. Urine output doing well. Volume status looks okay. I discussed with the patient. Her creatinine is not getting better. If I knew the kidneys were not going to get better then I would suggest dialysis. She does not want any part of dialysis. I asked her if she would do it if it meant that she would without it. She says that her kidneys will get better. I asked her if she wanted hospice and she does not want to . We discussed kidney biopsy as well. Her kidneys are not getting better, fluids are not helping, and we do not know if there is something treated will going on in the kidneys. We discussed risks benefits and the process of dialysis. She does not want to do this either. She wants to talk with her family. She wants to go home for 2 weeks. I will come back tomorrow to discuss this further. (2) Chronic kidney disease, stage IV (severe): Code(s): N18.4 - Chronic kidney disease, stage 4 (severe) Status: Chronic Assessment and Plan: baseline creatinine ~ 2.5 - 2.0mg/dl presumable due to HTN and age-related change along with a previous hx of diabetes(?) difficult to teas out the acute from the chronic. (3) Acute hyperkalemia: Code(s): E87.5 - Hyperkalemia Status: Chronic Assessment and Plan: due to PING potassium good today (4) Anemia: Code(s): D64.9 - Anemia, unspecified Status: Acute Assessment and Plan: apparently a chronic issue CKD probably playing a role PING may reason for worsening getting epo. tsat okay Patient is scheduled to get blood transfusion. (5) Gastrostomy complication, unspecified: Code(s): K94.20 - Gastrostomy complication, unspecified Status: Acute Assessment and Plan: Gastroentrology following G-tube already exchanged yesterday AM however, since it is apparently not even needed, plan removal tomorrow (6) Hypertension: Code(s): I10 - Essential (primary) hypertension Status: Chronic Assessment and Plan: Blood pressure is better this morning. on amlod 10 change to nifedipine 60. Will continue to follow. Subjective Date/time seen: 05/10/20 07:52 Interval history: pt feels about the same she says she wants to go home. She wants to eat breakfast. No shortness of breath or swelling. Review of Systems Cardiovascular: Cardiovascular: Reports no additional cardiovascular complaints Respiratory: Respiratory: Reports no additional respiratory complaints Gastrointestinal: Gastrointestinal: Reports no additional gastrointestinal complaints Genitourinary: Genitourinary: Reports no additional female genitourinary complaints Exam Narrative: Exam Narrative: Thin female in no acute distress. Lungs are clear Heart regular rate and rhythm without rub. Skin no rash. Extremities no edema. Abdomen bowel sounds positive soft nontender Objective Data Vital Signs Vital Signs: Vital Signs - 24 hr 05/09/20 08:00 05/09/20 12:16 05/09/20 16:00 Temperature 36.2 C L 36.3 C L 36.6 C Pulse Rate 75 77 82 Respiratory Rate 12 12 12 Blood Pressure 164/67 H 179/53 H 189/56 H Pulse Oximetry 100 100 100 05/09/20 22:00 05/10/20 06:00 Temperature 37.4 C 37.6 C Pulse Rate 76 71 Respiratory Rate 18 18 Blood Pressure 135/56 L 134/74 Pulse Oximetry 98 99 Intake/Output Intake/Output: Intake & Output 05/07/20 05/08/20 05/09/20 0
[2020-05-10 08:09] LABS: Erythrocyte Sedimentation Rate 108 mm/hr (0-20)
[2020-05-10 08:16] LABS: Complement C3 82 mg/dL (88-165)
[2020-05-10 08:23] LABS: Creatine Kinase 38 U/L (30-135)
[2020-05-10] MEDS: MIRABEGRON 25 MG ER TABLET PO (09:36)
[2020-05-10] MEDS: calcitrioL 0.25 MCG CAPSULE 0.5 MCG PO (09:37)
[2020-05-10] MEDS: NIFEdipine 30 MG TAB.ER.24 60 MG PO (09:38)
[2020-05-10] MEDS: LIDOCAINE 5% PATCH 1 PATCH TOPICAL (11:48)
--- NOTE | 2020-05-10 12:34 | WPDGIPROGNO ---
Progress Note: A&P Additional Plan Patient alert anxious to go home. 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 Peg tube removed yesterday. Physical exam reveals abdomen to be to be benign. Gastric cutaneous fistula centrally close. Labs reveal hemoglobin 6.6 matter crit 21.5, MCV 93. BUN 63, creatinine 5.9. Impression gastric cutaneous fistula closing as expected after removal of G-tube. Continue local care for now. 2. History of gastric bypass. Allow diet as tolerated. Small portions may be best for her. 3. Anemia likely related to chronic kidney disease. 4. Acute renal insufficiency probably with chronic component. Nephrology service following. Subjective Date/time seen: 05/10/20 12:34 Objective Data Vital Signs Vital Signs: Vital Signs - 24 hr 05/09/20 16:00 05/09/20 22:00 05/10/20 06:00 Temperature 97.8 F 99.4 F 99.6 F Pulse Rate 82 76 71 Respiratory Rate 12 18 18 Blood Pressure 189/56 H 135/56 L 134/74 Pulse Oximetry 100 98 99 Intake/Output Intake/Output: Intake & Output 05/07/20 05/08/20 05/09/20 05/10/20 23:59 23:59 23:59 23:59 Intake Total 1720 1077 480 120 Output Total 2200 2625 1385 500 [facility] -480 -1548 -1520 -380 Meds/Results Medications: Active Medications Generic Name Dose Route Start Last Admin Trade Name Freq PRN Reason Stop Dose Admin Bisacodyl 10 mg 05/06/20 22:56 05/08/20 16:38 Dulcolax Suppository RECTAL 10 mg DAILY PRN Administration Constipation Calcitriol 0.5 mcg 05/07/20 09:00 05/10/20 09:37 Rocaltrol PO 0.5 mcg DAILY ROBIN Administration Calcium Carbonate 200 mg 05/09/20 19:00 05/09/20 20:35 Tums PO 200 mg Q6H PRN Administration Indigestion Dextrose 12.5 gm 05/07/20 09:22 Dextrose 50% Syringe IV PUSH PRN PRN Hypoglycemia Protocol Epoetin Dusty-epbx 10,000 units 05/09/20 09:00 05/09/20 10:34 Retacrit SUB-Q 10,000 units [id number] ROBIN Administration Ferrous Sulfate 142 mg 05/07/20 09:00 05/10/20 09:35 Slow Fe 142 Mg PO Not Given DAILY ROBIN Fluticasone Propionate 1 spray 05/06/20 22:56 Flonase 0.05% Nasal Hersey NASAL PRN PRN Allergic Symptoms Glucagon 1 mg 05/07/20 09:22 Glucagon For Inj IM PRN PRN Hypoglycemia Protocol Glucose 15 gm 05/07/20 09:22 Glutose 15 PO PRN PRN Hypoglycemia Protocol Hydralazine HCl 10 mg 05/09/20 17:11 Apresoline Hcl Inj IV PUSH Q8H PRN Blood Pressure - High Levofloxacin/Dextrose 500 mg in 100 mls @ 100 mls/hr 05/07/20 18:00 05/09/20 18:55 Levaquin 500 Mg/D5w 100 Ml IVPB 100 mls/hr Q48H ROBIN Administration Dextrose 1,000 mls @ 100 mls/hr 05/07/20 09:22 Dextrose 5% 1,000 Ml IVPB PRN PRN Hypoglycemia Protocol Sodium Bicarbonate 75 meq/ 1,075 mls @ 0 mls/hr 05/07/20 14:45 05/08/20 23:24 Sodium Chloride IV CONT 75 mls/hr .Q0M ROBIN Infusion Sodium Chloride 250 mls @ 30 mls/hr 05/10/20 06:35 Normal Saline Iv IV CONT 05/10/20 14:54 .Q8H20M STA Lidocaine 1 patch 05/07/20 09:00 05/10/20 11:48 Lidoderm TOPICAL 1 patch DAILY ROBIN Administration Melatonin 5 mg 05/06/20 23:15 05/09/20 20:19 Melatonin PO 5 mg HS ROBIN Administration Mirabegron 25 mg 05/07/20 09:00 05/10/20 09:36 Myrbetriq PO 25 mg DAILY ROBIN Administration Multivitamins/Minerals 1 tab 05/07/20 09:00 05/10/20 09:36 Centrum Silver PO Not Given DAILY ROBIN Nifedipine 60 mg 05/10/20 09:00 05/10/20 09:38 Procardia Xl PO 60 mg QAM ROBIN Administration Ondansetron HCl 4 mg 05/08/20 16:05 05/08/20 23:15 Zofran Inj IV PUSH 4 mg Q4H PRN Administration Nausea And Vomiting Oxycodone HCl 5 mg 05/08/20 10:40 09/13/20 15:29 Roxicodone Oral Soln BY MOUTH 5 mg Q8HR PRN Administration Pain Rated 7-10 Pantoprazole Sodium 40 mg 05/06/20 21:00 05/09/20 20:20 Protonix
[2020-05-10 14:00] VITALS: BP 153/66; PULSE 85; RESP 18; TEMP 37.7; O2SAT 99
--- NOTE | 2020-05-10 14:09 | PM.IMPN ---
Progress Note: A&P Assessment and Plan (1) UTI (urinary tract infection): Code(s): N39.0 - Urinary tract infection, site not specified Status: Acute Assessment and Plan: patient has multiple allergies and was started on Levaquin. I did ask pharmacy to renally dose it. Urine and blood cultures are pending. 05/10/20 14:09 patient is 74-year-old female [place] [facility] [place] with a history of dysphagia specially with pills and has G-tube, patient G-tube site had been leaking he was sent to emergency department for further evaluation patient was seen by GI and the G-tube was replaced apparently still leaking, I spoke with Dr. Okeefe at [facility] G tube was placed for ERCP after her gastric bypass surgery in November of 2019 and supposed to removed after 10 days but patient did not go back to the hospital, I was asked to remove the G tube, I have discussed with Dr. Forrester will remove the tube tomorrow, patient also has history of anemia currently there is no complaint of bleeding black stool or bleeding, , apparently patient is able to have regular diet will continue and monitor. CT scan of abdominal also showed colonic stool and stool ball measuring 5.8 cm and patient on norcotics for pain control will give reglan, dulcolax suppository for constipation, on 05/[address] 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 The patient has a history of chronic renal failure stage 4. Nephrology has been consulted. Will do a renal ultrasound as well. Patient had IV fluids in the emergency room. Hold Lasix. (3) Gastrostomy complication, unspecified: Code(s): K94.20 - Gastrostomy complication, unspecified Status: Acute Assessment and Plan: Dr. forrester has been consulted. (4) Constipation: Code(s): K59.00 - Constipation, unspecified Status: Acute Assessment and Plan: Patient has a stool ball and MiraLax was ordered and she is also on Linzess. Will need to give her enemas as well. (5) Acute hyperkalemia: Code(s): E87.5 - Hyperkalemia Status: Chronic Assessment and Plan: Patient has some peaked T-waves. She was given a concoction in the emergency room. Will repeat her BMP. (6) Dementia: Code(s): F03.90 - Unspecified dementia without behavioral disturbance Status: Chronic Assessment and Plan: Patient denies is but she has a very poor historian. (7) Chronic anemia: Code(s): D64.9 - Anemia, unspecified Status: Chronic Assessment and Plan: GI was consulted for possible GI bleed. Check her H&H every 6 hours. She has chronic anemia most likely related to her chronic renal failure. the patient is on retacrit. She is also on ferrous sulfate. Continue with PPI her possibility of GI bleed. (8) Hyperparathyroidism: Code(s): E21.3 - Hyperparathyroidism, unspecified Status: Chronic Assessment and Plan: The patient is on calcitriol (9) Hypertension: Code(s): I10 - Essential (primary) hypertension Status: Chronic Assessment and Plan: continue with Norvasc Subjective Date/time seen: 05/10/20 14:09 patient is 74-year-old female [place] of [place] with a history of dysphagia specially with pills and has G-tube, patient G-tube site had been leaking he was sent to emergency department for further evaluation patient was seen by GI and the G-tube was replaced apparently
[2020-05-10] MEDS: SUCRALFATE 1 GM TABLET BY MOUTH ×3 (14:47→22:25)
[2020-05-10] MEDS: ONDANSETRON INJ 4 MG/2 ML VIAL IV PUSH (14:56)
[2020-05-10] MEDS: PANTOPRAZOLE SODIUM IV 40 MG VIAL IV PUSH ×2 (15:04→22:25)
[2020-05-10] MEDS: polyethylene glycoL 3350 17 GM POWD.PACK PO (17:56)
[2020-05-10 22:00] VITALS: BP 141/69; PULSE 80; RESP 18; TEMP 37.5; O2SAT 100
[2020-05-10] MEDS: MELATONIN 5 MG TABLET PO (22:25)
--- NOTE | 2020-05-10 22:50 | PC.NURSE ---
Patient has called multiple times to complain about her feet being cold. She has a k-pad that she has been readjusted multiple times and has had multiple blankets laid on her feet. Patient upset because we can't get her feet warm.
[2020-05-11 06:00] VITALS: BP 162/73; PULSE 73; RESP 18; TEMP 37.1; O2SAT 99
[2020-05-11] MEDS: TOLNAFTATE 1% POWDER 45 GM BTL 1 APPLIC TOPICAL ×2 (06:52→15:38)
--- NOTE | 2020-05-11 08:45 | WPDGIPROGNO ---
Progress Note: A&P Additional Plan Patient alert reports to be comfortable this morning. Tolerating diet. Physical exam reveals abdomen to be soft. Gastric cutaneous fistula closing appropriately. Only minimal drainage at this time. Erythema noted around the fistula site slowly improving. Impression 1. 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 Plan is to continue local care to PEG site. 2. History of gastric bypass surgery. Continue diet as tolerated. 3. Renal failure. Followed by renal service. Final disposition per their instructions. Plan from the GI perspective is to continue local care at gastric cutaneous fistula no follow-up necessary unless drainage persists greater than 1 week. Local care advised. Disposition per primary care service regarding discharge. Subjective Date/time seen: 05/11/20 08:45 Objective Data Vital Signs Vital Signs: Vital Signs - 24 hr 05/10/20 14:00 05/10/20 22:00 05/11/20 06:00 Temperature 99.9 F H 99.5 F 98.8 F Pulse Rate 85 80 73 Respiratory Rate 18 18 18 Blood Pressure 153/66 H 141/69 H 162/73 H Pulse Oximetry 99 100 99 Intake/Output Intake/Output: Intake & Output 05/08/20 05/09/20 05/10/20 05/11/20 23:59 23:59 23:59 23:59 Intake Total 1990 053 7442 550 Output Total 2625 2000 1250 1000 [facility] -1548 -[id number] -210 -450 Meds/Results Medications: Active Medications Generic Name Dose Route Start Last Admin Trade Name Freq PRN Reason Stop Dose Admin Bisacodyl 10 mg 05/06/20 22:56 05/08/20 16:38 Dulcolax Suppository RECTAL 10 mg DAILY PRN Administration Constipation Calcitriol 0.5 mcg 05/07/20 09:00 05/10/20 09:37 Rocaltrol PO 0.5 mcg DAILY ROBIN Administration Calcium Carbonate 200 mg 05/09/20 19:00 05/09/20 20:35 Tums PO 200 mg Q6H PRN Administration Indigestion Dextrose 12.5 gm 05/07/20 09:22 Dextrose 50% Syringe IV PUSH PRN PRN Hypoglycemia Protocol Epoetin Dusty-epbx 10,000 units 05/09/20 09:00 05/09/20 10:34 Retacrit SUB-Q 10,000 units [id number] ROBIN Administration Ferrous Sulfate 142 mg 05/07/20 09:00 05/10/20 09:35 Slow Fe 142 Mg PO Not Given DAILY ROBIN Fluticasone Propionate 1 spray 05/06/20 22:56 Flonase 0.05% Nasal [place] NASAL PRN PRN Allergic Symptoms Glucagon 1 mg 05/07/20 09:22 Glucagon For Inj IM PRN PRN Hypoglycemia Protocol Glucose 15 gm 05/07/20 09:22 Glutose 15 PO PRN PRN Hypoglycemia Protocol Hydralazine HCl 10 mg 05/09/20 17:11 Apresoline Hcl Inj IV PUSH Q8H PRN Blood Pressure - High Levofloxacin/Dextrose 500 mg in 100 mls @ 100 mls/hr 05/07/20 18:00 05/09/20 18:55 Levaquin 500 Mg/D5w 100 Ml IVPB 100 mls/hr Q48H ROBIN Administration Dextrose 1,000 mls @ 100 mls/hr 05/07/20 09:22 Dextrose 5% 1,000 Ml IVPB PRN PRN Hypoglycemia Protocol Sodium Bicarbonate 75 meq/ 1,075 mls @ 0 mls/hr 05/07/20 14:45 05/08/20 23:24 Sodium Chloride IV CONT 75 mls/hr .Q0M ROBIN Infusion Lidocaine 1 patch 05/07/20 09:00 05/10/20 11:48 Lidoderm TOPICAL 1 patch DAILY ROBIN Administration Melatonin 5 mg 05/06/20 23:15 05/10/20 22:25 Melatonin PO 5 mg HS ROBIN Administration Mirabegron 25 mg 05/07/20 09:00 05/10/20 09:36 Myrbetriq PO 25 mg DAILY ROBIN Administration Multivitamins/Minerals 1 tab 05/07/20 09:00 05/10/20 09:36 Centrum Silver PO Not Given DAILY ROBIN Nifedipine 60 mg 05/10/20 09:00 05/10/20 09:38 Procardia Xl PO 60 mg QAM ROBIN Administration Ondansetron HCl 4 mg 05/08/20 16:05 05/10/20 14:56 Zofran Inj IV PUSH 4 mg Q4H PRN Administration Nausea And Vomiting Oxycodone HCl 5 mg 05/08/20 10:40 05/08/20 15:29 Roxicodone Oral Soln BY MOUTH 5 mg Q8HR PRN Administration Pain Rated 7-10 Pantoprazole Sodium 40 mg 05/06/20
[2020-05-11] MEDS: calcitrioL 0.25 MCG CAPSULE 0.5 MCG PO (09:12)
[2020-05-11] MEDS: PANTOPRAZOLE SODIUM IV 40 MG VIAL IV PUSH (09:12)
[2020-05-11] MEDS: MIRABEGRON 25 MG ER TABLET PO (09:13)
[2020-05-11] MEDS: FERROUS SULFATE DRIED 142 MG TABCR PO (09:13)
[2020-05-11] MEDS: SUCRALFATE 1 GM TABLET BY MOUTH (09:13)
[2020-05-11] MEDS: MULTIVITAMINS /C LUTEIN (CENTRUM SILVER) TABLET *BKC 1 TAB PO (09:13)
[2020-05-11] MEDS: EPOETIN ALFA-EPBX 10,000 UNITS/ML VIAL 10000 UNITS SUB-Q (09:13)
[2020-05-11] MEDS: NIFEdipine 30 MG TAB.ER.24 60 MG PO (09:13)
[2020-05-11 10:52] LABS: Basophils Absolute Auto 0.1 K/mm3 (0.0-0.1); Basophils Percent Auto 0.4 % (0.2-1.2); Eosinophils Absolute Auto 0.5 K/mm3 (0-0.3); Eosinophils Percent Auto 3.6 % (0-4.4); Hematocrit 23.6 % (37.0-47.0); Hemoglobin 7.3 g/dL (12.0-15.0); Immature Granulocyte Absolute 0.26 K/mm3 (0.00-0.031); Immature Granulocyte Percent A 1.9 % (0-0.5); Lymphocytes Absolute Auto 3.22 K/mm3 (0.9-3.2); Lymphocytes Percent Auto 23.1 % (18.3-44.2); Mean Corpuscular HGB Conc 30.9 g/dl (32-36); Mean Corpuscular Hemoglobin 28.4 pg (26-34); Mean Corpuscular Volume 91.8 fl (80-100); Mean Platelet Volume 9.5 fl (7.4-10.4); Monocytes Absolute Auto 1.5 K/mm3 (0.1-0.6); Monocytes Percent Auto 10.7 % (2.6-8.5); Neutrophils Absolute Auto 8.4 K/mm3 (1.3-6.7); Neutrophils Percent Auto 60.3 % (45.5-73.1); Platelet Count Result 449 k/mm3 (150-375); Red Blood Count 2.57 M/mm3 (4.2-5.4); Red Cell Distribution Width 13.1 % (11.5-14.5); White Blood Count 13.9 K/mm3 (4.5-10.0)
[2020-05-11 11:02] LABS: INR 1.1; Prothrombin Time 14.1 Seconds (11.1-14.7)
[2020-05-11 11:03] LABS: Partial Thromboplastin Time 48.4 SECONDS (22.3-36.8); Sodium 137 mmol/L (137-145)
[2020-05-11 11:06] LABS: Albumin Level 2.7 g/dL (3.5-5.1); Anion Gap 8 mmol/L (8-16); Blood Urea Nitrogen 58 mg/dL (7-17); Calcium 8.1 mg/dL (8.4-10.2); Carbon Dioxide 19 mmol/L (22-30); Chloride 111 mmol/L (98-107); Estimated CRCL calculation 8 ml/min; Estimated Glomerular Filt Rate 8; Glucose 84 mg/dL (65-105); Potassium 4.9 mmol/L (3.4-5.0); Sodium 138 mmol/L (137-145)
--- NOTE | 2020-05-11 11:49 | PC.NURSE ---
Pt is A&O x 3. Pt utilizes the call light constantly throughout the shift, and refuses to help herself with any self care or tasks. Pt can become easily agitated and rude to staff. Pt often demands to speak to Charge nurse when she does not get what she wants, EX: to eat when she is NPO. Pt is difficult to care for, due to being uncooperative.
[2020-05-11] MEDS: BISACODYL 10 MG SUPPOSITORY RECTAL (13:32)
[2020-05-11 14:00] VITALS: BP 171/75; PULSE 87; RESP 20; TEMP 37.3; O2SAT 100
--- NOTE | 2020-05-11 15:27 | PM.DS ---
DS: Admitting Diagnosis Admitting Diagnosis Admitting Diagnosis: Acute kidney injury/hyperkalemia/constipation/g tu DS: Discharge Diagnosis Discharge Diagnosis (1) UTI (urinary tract infection): Code(s): N39.0 - Urinary tract infection, site not specified Status: Acute Assessment and Plan: patient has multiple allergies and was started on Levaquin. I did ask pharmacy to renally dose it. Urine and blood cultures are pending. 05/10/20 14:09 patient is 74-year-old female resident of shelter with a history of dysphagia specially with pills and has G-tube, patient G-tube site had been leaking he was sent to emergency department for further evaluation patient was seen by GI and the G-tube was replaced apparently still leaking, I spoke with Dr. Okeefe at [facility] G tube was placed for ERCP after her gastric bypass surgery in November of 2019 and supposed to removed after 10 days but patient did not go back to the hospital, I was asked to remove the G tube, I have discussed with Dr. Forrester will remove the tube tomorrow, patient also has history of anemia currently there is no complaint of bleeding black stool or bleeding, , apparently patient is able to have regular diet will continue and monitor. CT scan of abdominal also showed colonic stool and stool ball measuring 5.8 cm and patient on norcotics for pain control will give reglan, dulcolax suppository for constipation, on 05/[address] Forrester the G-tube was removed, started the patient on soapsuds enema for constipation, start the patient on clear liquid and patient with history of chronic kidney disease for which patient is seen by curriculum designer and refusing dialysis, today 05/10 patient hemoglobin is 6.6 and patient is refusing blood transfusion, she did have a BM, denies any abdominal pain nausea or vomiting, (2) Acute kidney injury: Code(s): N17.9 - Acute kidney failure, unspecified Status: Acute Assessment and Plan: The patient is cued on chronic renal failure. The patient has a history of chronic renal failure stage 4. Nephrology has been consulted. Will do a renal ultrasound as well. Patient had IV fluids in the emergency room. Hold Lasix. (3) Gastrostomy complication, unspecified: Code(s): K94.20 - Gastrostomy complication, unspecified Status: Acute Assessment and Plan: Dr. forrester has been consulted. (4) Constipation: Code(s): K59.00 - Constipation, unspecified Status: Acute Assessment and Plan: Patient has a stool ball and MiraLax was ordered and she is also on Linzess. Will need to give her enemas as well. (5) Acute hyperkalemia: Code(s): E87.5 - Hyperkalemia Status: Chronic Assessment and Plan: Patient has some peaked T-waves. She was given a concoction in the emergency room. Will repeat her BMP. (6) Dementia: Code(s): F03.90 - Unspecified dementia without behavioral disturbance Status: Chronic Assessment and Plan: Patient denies is but she has a very poor historian. (7) Chronic anemia: Code(s): D64.9 - Anemia, unspecified Status: Chronic Assessment and Plan: GI was consulted for possible GI bleed. Check her H&H every 6 hours. She has chronic anemia most likely related to her chronic renal failure. the patient is on retacrit. She is also on ferrous sulfate. Continue with PPI her possibility of GI bleed. (8) Hyperparathyroidism: Code(s): E21.3 - Hyperparathyroidism, unspecified Status: Chronic Assessment and Plan: The patient is on calcitriol (9) Hypertension: Code(s): I10 - Essential (primary) hypertension Status: Chronic Assessment and Plan: continue with Norvasc DS: Summary Hospital Course Reason for hospitalization: Chief complaint: Acute kidney injury/hyperkalemia/constipation/g tu Narrative: Sangeetha Cox is a 74 year old female Who is from [facility]
--- NOTE | 2020-05-11 15:55 | PC.NURSE ---
Pt is A&O x 3. Pt has been extremely difficult to care for this shift. She has been rude to staff, and wants staff to stay in room while she poops the bed, because she refuses to get up...so she doesn't have to wait to be cleaned up. Pt refuses to help with any self care and has been very uncooperative with care. Pt has now decided to refuse her kidney biopsy and wants to go back to her facility.
--- NOTE | 2020-05-11 17:25 | PC.NURSE ---
Pt has discharge orders. Pt has had IV removed, and report has been called to her facility. Receiving nurse, exhibited good understanding of pt's discharge instruction, and pt's behaviors. Pt refused meds throughout this shift. Pt was incontinent on purpose and yelled out frequently at staff and into the jenkins. Pt requested to be discharged back to her facility, when pt was notified she was to be discharged, she said she won't leave until tomorrow. Pt's furniture salesperson was notified that the pt would be discharged today, and pt was informed she is being discharged today. Pt started back up with behaviors and trying to get to stay until morning because she was too tired to leave. Pt was assisted to ambulance bed, and was discharge from this facility at 5:30 pm
[2020-05-12 14:43] LABS: Kappa\\Lambda Light Chains 1.47 (0.26-1.65); Lambda Light Chain 154.4 mg/L (5.7-26.3)
[2020-05-12 20:36] LABS: Albumin 1.8 g/dL (3.8-4.8); Alpha 1 Globulin 0.4 g/dL (0.2-0.3); Alpha 2 Globulin 0.8 g/dL (0.5-0.9); Beta 1 Globulin 0.3 g/dL (0.4-0.6); Gamma Globulin 1.3 g/dL (0.8-1.7); Protein, Total 4.9 g/dL (6.1-8.1)
[2020-05-13 12:01] LABS: Complement Total CH50 >60 U/mL (31-60)
[2020-05-17 12:50] LABS: Creatinine, Random Urine 36 mg/dL (20-275); Total Protein/Creatinine Ratio 8361 mg/g creat (21-161)
== END 2020-05-11 17:30 | DRG 683 ==
LOC: ANHED 15:13 → ANHIMU 16:52 → ANH3MEDSUR 05-11 15:27 → ANHIMU 05-12 14:32
PROVIDERS: Emergency Medicine Emergency Medical Services; Internal Medicine Nephrology; Nurse Practitioner; Admitting Provider Internal Medicine; Emergency Provider Emergency Medicine; PCP Family Medicine; Visit Provider Family Medicine
DX: N17.9 Acute kidney failure, unspecified (principal); N39.0 Urinary tract infection, site not specified; K94.29 Other complications of gastrostomy; F03.90 Unspecified dementia, unspecified severity, without behavioral disturbance, psychotic disturbance, mood disturbance, and anxiety; I12.9 Hypertensive chronic kidney disease with stage 1 through stage 4 chronic kidney disease, or unspecified chronic kidney disease; E11.22 Type 2 diabetes mellitus with diabetic chronic kidney disease; N18.4 Chronic kidney disease, stage 4 (severe); D63.1 Anemia in chronic kidney disease; E86.0 Dehydration; E21.3 Hyperparathyroidism, unspecified; E87.5 Hyperkalemia; R13.10 Dysphagia, unspecified; K59.00 Constipation, unspecified; Z79.899 Other long term (current) drug therapy; Z88.0 Allergy status to penicillin; Z88.1 Allergy status to other antibiotic agents; Z88.8 Allergy status to other drugs, medicaments and biological substances; Z98.84 Bariatric surgery status
CPT/HCPCS: 36415; 49450; 49465; 51702; 74176; 76775; 80048; 80053; 80069; 81001; 81479; 82247; 82550; 82570; 82728; 83540; 83550; 83605; 83690; 83883; 83970; 84155; 84156; 84165; 84166; 84295; 84443; 84450; 85014; 85018; 85025; 85027; 85610; 85652; 85730; 86038; 86160; 86162; 86334; 86335; 86850; 86860; 86870; 86880; 86900; 86901; 86902; 86905; 86922; 86971; 87040; 87077; 87086; 87088; 87186; 93005; 96361; 96365; 96375; 99285; A9270; C9113; J0610; J1815; J1956; J2405; J7040; J7120; Q5106